=== PATIENT | male | born 1950 | race Caucasian/White ===

== ENCOUNTER → 2018-02-12 10:06 | Outpatient (CLI) | payer MEDICARE, SELFPAY ==
[2018-02-12 11:31] LABS: Basophils % 0.3 % (0.1-2.0); Eosinophils # 0.1 K/mm3 (0.0-0.4); Eosinophils % 1.1 % (0.1-12.0); Hematocrit 48.9 % (42.0-52.0); Hemoglobin 15.4 g/dL (14.1-18.0); Lymphocytes # 1.6 K/mm3 (0.7-4.5); Lymphocytes % 23.6 K/mm3 (10-50); Mean Corpuscular HGB Conc 31.4 g/dL (31.8-35.4); Mean Corpuscular Hemoglobin 30.9 pg (27.0-31.2); Mean Corpuscular Volume 98.4 fl (80-94); Mean Platelet Volume 9.4 fl (7.4-10.4); Monocytes # 0.3 K/mm3 (0.1-1.0); Monocytes % 4.4 % (1.7-9.3); Neutrophils # 4.9 K/mm3 (1.8-7.8); Neutrophils % 70.6 % (37.0-80.0); Platelet Count 158 K/mm3 (142-424); Red Blood Count 4.97 M/mm3 (4.60-6.20); Red Cell Distribution Width 13.5 % (11.5-17.5); White Blood Count 6.9 K/mm3 (4.8-10.8)
[2018-02-12 12:40] LABS: Hemoglobin A1C 6.2 % (0.0-7.0)
[2018-02-12 12:48] LABS: Alanine Aminotransferase 50 U/L (12-78); Albumin Level 4.2 gm/dL (3.4-5.0); Albumin/Globulin Ratio 1.3 (1.1-1.8); Alkaline Phosphatase 54 U/L (46-116); Anion Gap 14.7 mEq/L (5-15); Aspartate Amino Transferase 43 U/L (15-37); Bilirubin,Total 0.7 mg/dL (0.2-1.0); Blood Urea Nitrogen 15 mg/dL (7-18); Calcium 8.5 mg/dL (8.5-10.1); Carbon Dioxide 29 mmol/L (21.0-32.0); Chloride 101 mmol/L (98-107); Chol/HDL Ratio 3.3 (1-3.5); Cholesterol 144 mg/dL (140-200); Creatinine,Serum 0.82 mg/dL (0.70-1.30); Estimated Glomerular Filt Rate 93 ml/min (>60); GFR (African American) 113 ML/MIN (>60); Globulin 3.2 gm/dl (1.3-3.2); Glucose 112 mg/dL (74-106); HDL Cholesterol 43 mg/dL (27-67); LDL Cholesterol 64 mg/dL (0-130); Potassium 4.7 mmoL/L (3.5-5.1); Prostate Specific Ag Screen 1.3 ng/mL (0.0-4.0); Sodium 140 mmol/L (136-145); Thyroid Stimulating Hormone 3.02 uIU/ml (0.358-3.740); Total Protein,Serum 7.4 gm/dL (6.4-8.2); Triglycerides 187 mg/dL (30-200); VLDL Cholesterol 37 mg/dL (0-40)
[2018-02-13 15:40] LABS: Vitamin B12 666 pg/mL (232-1245)
== END ==
PROVIDERS: Visit Provider Nurse Practitioner Family
DX: Z12.5 Encounter for screening for malignant neoplasm of prostate (principal); R35.1 Nocturia; E78.5 Hyperlipidemia, unspecified; I10 Essential (primary) hypertension; E11.9 Type 2 diabetes mellitus without complications; R53.81 Other malaise
CPT/HCPCS: 36415; 80053; 80061; 82607; 83036; 84443; 85025; G0103

== ENCOUNTER → 2019-02-11 12:11 | Outpatient (CLI) | payer MEDICARE, SELFPAY ==
[2019-02-11 12:51] LABS: Basophils % 0.3 % (0.1-2.0); Eosinophils # 0.1 K/mm3 (0.0-0.4); Eosinophils % 1.3 % (0.1-12.0); Hematocrit 47.5 % (42.0-52.0); Hemoglobin 15.4 g/dL (14.1-18.0); Lymphocytes # 1.7 K/mm3 (0.7-4.5); Lymphocytes % 26.3 % (10-50); Mean Corpuscular HGB Conc 32.3 g/dL (31.8-35.4); Mean Corpuscular Hemoglobin 32.5 pg (27.0-31.2); Mean Corpuscular Volume 100.7 fl (80-94); Mean Platelet Volume 9.3 fl (7.4-10.4); Monocytes # 0.4 K/mm3 (0.1-1.0); Monocytes % 5.5 % (1.7-9.3); Neutrophils # 4.2 K/mm3 (1.8-7.8); Neutrophils % 66.5 % (37.0-80.0); Platelet Count 154 K/mm3 (142-424); Red Blood Count 4.72 M/mm3 (4.60-6.20); Red Cell Distribution Width 13.7 % (11.5-17.5); White Blood Count 6.4 K/mm3 (4.8-10.8)
[2019-02-11 13:46] LABS: Hemoglobin A1C 7.2 % (0.0-7.0)
[2019-02-11 15:08] LABS: Alanine Aminotransferase 47 U/L (12-78); Albumin Level 3.9 gm/dL (3.4-5.0); Albumin/Globulin Ratio 1.2 (1.1-1.8); Alkaline Phosphatase 56 U/L (46-116); Anion Gap 14.2 mEq/L (5-15); Aspartate Amino Transferase 46 U/L (15-37); Bilirubin,Total 0.8 mg/dL (0.2-1.0); Blood Urea Nitrogen 23 mg/dL (7-18); Calcium 8.9 mg/dL (8.5-10.1); Carbon Dioxide 32 mmol/L (21.0-32.0); Chloride 100 mmol/L (98-107); Chol/HDL Ratio 3.2 (1-3.5); Cholesterol 143 mg/dL (140-200); Creatinine,Serum 0.97 mg/dL (0.70-1.30); Estimated Glomerular Filt Rate 77 ml/min (>60); GFR (African American) 93 ML/MIN (>60); Globulin 3.3 gm/dl (1.3-3.2); Glucose 110 mg/dL (74-106); HDL Cholesterol 45 mg/dL (27-67); LDL Cholesterol 69 mg/dL (0-130); Potassium 5.2 mmoL/L (3.5-5.1); Sodium 141 mmol/L (136-145); Total Protein,Serum 7.2 gm/dL (6.4-8.2); Triglycerides 144 mg/dL (30-200); VLDL Cholesterol 29 mg/dL (0-40)
[2019-02-13 18:35] LABS: Vitamin B12 571 pg/mL (232-1245)
== END ==
PROVIDERS: Visit Provider Nurse Practitioner Family
DX: E78.5 Hyperlipidemia, unspecified (principal); I10 Essential (primary) hypertension; E53.8 Deficiency of other specified B group vitamins; E11.9 Type 2 diabetes mellitus without complications; Z79.84 Long term (current) use of oral hypoglycemic drugs
CPT/HCPCS: 36415; 80053; 80061; 82607; 83036; 85025

== ENCOUNTER → 2020-06-22 10:28 | Outpatient (CLI) | payer MEDICARE, SELFPAY ==
[2020-06-22 11:13] LABS: Basophils % 0.3 % (0.1-2.0); Eosinophils # 0.1 K/mm3 (0.0-0.4); Eosinophils % 0.9 % (0.1-12.0); Hematocrit 48.3 % (42.0-52.0); Hemoglobin 15.3 g/dL (14.1-18.0); Lymphocytes # 1.8 K/mm3 (0.7-4.5); Lymphocytes % 22.9 % (10-50); Mean Corpuscular HGB Conc 31.7 g/dL (31.8-35.4); Mean Corpuscular Volume 100.9 fl (80-94); Mean Platelet Volume 10.2 fl (7.4-10.4); Monocytes # 0.4 K/mm3 (0.1-1.0); Monocytes % 4.7 % (1.7-9.3); Neutrophils # 5.7 K/mm3 (1.8-7.8); Neutrophils % 71.1 % (37.0-80.0); Platelet Count 163 K/mm3 (142-424); Red Blood Count 4.78 M/mm3 (4.60-6.20); Red Cell Distribution Width 13.2 % (11.5-17.5)
[2020-06-22 12:07] LABS: Alanine Aminotransferase 25 U/L (12-78); Albumin Level 4.7 g/dl (3.5-5.0); Albumin/Globulin Ratio 1.7 (1.1-1.8); Alkaline Phosphatase 58 U/L (38-126); Anion Gap 12.8 mEq/L (5-15); Aspartate Amino Transferase 35 U/L (17-59); Bilirubin,Total 0.9 mg/dl (0.2-1.3); Blood Urea Nitrogen 19 mg/dl (9-20); Calcium 9.7 mg/dl (8.4-10.2); Carbon Dioxide 35 mmol/L (22.0-30.0); Chloride 97 mmol/L (98-107); Chol/HDL Ratio 3.6 (1-3.5); Cholesterol 176 mg/dl (140-200); Estimated Glomerular Filt Rate 83 ml/min (>60); GFR (African American) 101 ML/MIN (>60); Globulin 2.7 g/dL (1.3-3.2); Glucose 105 mg/dl (74-100); HDL Cholesterol 49 mg/dl (40-60); Potassium 4.8 mmoL/L (3.5-5.1); Sodium 140 mmol/L (136-145); Total Protein,Serum 7.4 g/dl (6.3-8.2); Triglycerides 253 mg/dl (30-150); VLDL Cholesterol 51 mg/dL (0-40)
[2020-06-22 12:20] LABS: Direct LDL Cholesterol 93.32 mg/dL (100-129)
[2020-06-22 12:36] LABS: Prostate Specific Ag Screen 2.4 ng/ml (0.0-4.0)
[2020-06-22 12:55] LABS: Vitamin B12 528 pg/mL (239-931)
[2020-06-22 13:52] LABS: Hemoglobin A1C 6.1 % (4.0-6.0)
[2020-06-22 14:29] LABS: Creatinine,Urine Random 207 mg/dL (Not Estab.)
[2020-06-22 14:30] LABS: Microalbumin/Creatinine Ratio 39.9
== END ==
PROVIDERS: Visit Provider Nurse Practitioner Family
DX: I10 Essential (primary) hypertension (principal); E78.5 Hyperlipidemia, unspecified; E11.9 Type 2 diabetes mellitus without complications; E53.8 Deficiency of other specified B group vitamins; R35.1 Nocturia; Z12.5 Encounter for screening for malignant neoplasm of prostate; Z79.84 Long term (current) use of oral hypoglycemic drugs
CPT/HCPCS: 36415; 80053; 80061; 82043; 82570; 82607; 83036; 85025; G0103

== ENCOUNTER → 2020-07-19 14:35 | Outpatient (CLI) | payer MEDICARE, SELFPAY ==
[2020-07-19 17:22] LABS: Coronavirus 19 IgG Antibody Negative (Negative); Coronavirus 19 IgM Antibody Negative (Negative)
== END ==
PROVIDERS: Visit Provider Internal Medicine Gastroenterology
DX: Z12.11 Encounter for screening for malignant neoplasm of colon (principal)
CPT/HCPCS: 36415; 86328

== ENCOUNTER 2020-07-21 09:54 | Day surgery (SDC) | payer MEDICARE, SELFPAY ==
[2020-07-17 10:29] VITALS: BMI 42.9
[2020-07-21 10:32] VITALS: BP 173/99; PULSE 85; RESP 18; TEMP 36.5; O2SAT 94
[2020-07-21 10:50] LABS: POC Glucose,Bedside 118 (70-110)
--- NOTE | 2020-07-21 11:23 | P.PN_ITS ---
[facility] Anesthesia Checklist - Patient Identification Patient Identification: Arm Band - Structural Data Admitted From: Home Planned Operative Procedure/s: colonoscopy Consent for Planned Operative Procedure(s) Verified: Yes Verified Documents: Surgical Consent, History and Physical - NPO Status Verified Time NPO: 00:00 - Additional verifications Anesthesia Reactions: No - Airway Assessment C-Spine Mobility Assessed: Yes (mp2) TMJ Mobility Assessed: Yes Dentition: Dentures-good fit - Neurological Assessment Level of Consciousness: Awake, Alert - Anesthesia Plan Anesthesia Risk discussed: Yes Anesthesia Plan: Verified ASA Class: III Anesthesia Type: MAC [facility] History I have reviewed the patient's past medical history: Yes Medical History: Reports:: Atherosclerotic Heart Disease, Coronary Artery Disease, Diabetes Mellitus Type 2, Hyperlipidemia, Hypertension, Myocardial Infarction Denies:: Cancer, Diabetes Mellitus Type 1, Internal Pacemaker, Lung Disease, MRSA, Seizures *Have you ever received a pneumonia vaccine?: Yes *Have you received a flu vaccine this season?: Yes Other Medical History: Reports: Other (AIDAN, obesity) Anesthesia experience/problems:: nac Other Surgeries: Yes: Coronary Stent. No: Pacemaker Amputation: No Fractures: No - *Social History Last grade of school completed: High school graduate Smoking Status: Never smoker Alcohol Intake: never Substance Use Type: denies use *Occupational Status:: retired Housing: house Household Members: spouse *Travel in the last 8 weeks: None Family Hx:: Coronary Artery Disease, Stroke
[2020-07-21 11:34] VITALS: O2SAT 97
[2020-07-21 11:50] VITALS: BP 125/60; PULSE 77; RESP 18; TEMP 36.6; O2SAT 92
--- NOTE | 2020-07-21 11:50 | HMH.PROC ---
[facility] Procedure Note Procedure Note:: Colonoscopy Procedure Report: Colonoscopy with cold snare polypectomy Endoscopist: Sudhir Hunter II, MD Referring physician: GIDEON Neal Date of Procedure: July 21, 2020 Equipment: Olympus 180 variable stiffness pediatric colonoscope Sedation: MAC sedation Indication: Mr. Holcomb is a 69-year-old gentleman who is here for follow-up surveillance colonoscopy secondary to a personal history of adenomatous colon polyps. He had a colonoscopy 7 years ago at which time some polyps were removed. His last colonoscopy with al in March 2018 revealed 14 colon polyps (tubular adenomas x14) which were removed. He reports no abdominal pain, weight loss, change in his bowel habits or rectal bleeding. He reports no family history of colon cancer. Procedure: Prior to the procedure, a history and physical exam was performed, and patient's medications and allergies were reviewed. The risks, benefits and alternatives of the sedation and procedure were discussed with the patient. All questions were answered and informed consent was obtained. The patient was brought to the procedure room. Patient identification and proposed procedure were verified by the physician and the nurse. The patient was placed in a left lateral decubitus position and the scope was passed under direct vision. Throughout the procedure, the patient's blood pressure, pulse, and oxygen saturations were monitored continuously. The colonoscopy was accomplished without difficulty. The patient tolerated the procedure well. Findings: On digital rectal examination there was normal rectal tone. There were no external hemorrhoids. The colonoscope was introduced through the anal canal to the rectum and advanced to the cecum. The ileocecal valve and appendiceal orifice were identified. The scope was advanced a short distance into the ileum which appeared grossly normal. The scope was then withdrawn into the colon. There were 5 colon polyps (ascending x3 (3, 4 and 4 mm), transverse x1 (5 mm) and ascending x1 (3 mm)) which were all removed via cold snare polypectomy. The remaining cecum, ascending and transverse colon and mucosa were grossly normal. There were scattered diverticuli throughout the descending and sigmoid colon (LEFT colon). The rectum itself was normal. Upon retroflexion within the rectum there were grade 1-2 internal hemorrhoids. The preparation was excellent throughout with Amelia Preparation Score of 9. The cecal time was 12 minutes. Impression: 1. Diminutive colonic polyps x5 2. Left-sided diverticulosis 3. Grade 1-2 internal hemorrhoids Plan: I will follow up the polyp pathology and recommend repeat colonoscopy again in 3-5 years based upon the polyp histology. I would encourage bulk fiber supplementation on a long-term daily maintenance basis.
[2020-07-21 12:00] VITALS: BP 144/78; PULSE 87; RESP 16; O2SAT 94
[2020-07-21 12:20] VITALS: BP 138/76; PULSE 76; RESP 16; O2SAT 97
== END 2020-07-21 12:20 | disposition home or self-care (01) ==
LOC: OUTP 09:57
PROVIDERS: PCP Nurse Practitioner Family; Visit Provider Internal Medicine Gastroenterology
PROC: 0DJD8ZZ Inspection of Lower Intestinal Tract, Via Natural or Artificial Opening Endoscopic (ICD-10-PCS; CPT 45378; principal; 2020-07-21 11:00)
DX: Z12.11 Encounter for screening for malignant neoplasm of colon (principal); Z86.010 Personal history of colon polyps; K63.5 Polyp of colon; K57.30 Diverticulosis of large intestine without perforation or abscess without bleeding; K64.0 First degree hemorrhoids; I25.10 Atherosclerotic heart disease of native coronary artery without angina pectoris; E11.9 Type 2 diabetes mellitus without complications; E78.5 Hyperlipidemia, unspecified; I10 Essential (primary) hypertension; I25.2 Old myocardial infarction; E66.9 Obesity, unspecified; Z68.41 Body mass index [BMI] 40.0-44.9, adult
CPT/HCPCS: 45385; 82962; 88305

== ENCOUNTER → 2021-01-18 10:02 | Outpatient (CLI) | payer MEDICARE, SELFPAY ==
[2021-01-18 10:37] LABS: Basophils % 0.3 % (0.1-2.0); Eosinophils # 0.1 K/mm3 (0.0-0.4); Eosinophils % 1.3 % (0.1-12.0); Hematocrit 44.2 % (42.0-52.0); Lymphocytes # 1.7 K/mm3 (0.7-4.5); Mean Corpuscular Hemoglobin 32.5 pg (27.0-31.2); Mean Corpuscular Volume 95.7 fl (80-94); Mean Platelet Volume 9.7 fl (7.4-10.4); Monocytes # 0.3 K/mm3 (0.1-1.0); Monocytes % 4.9 % (1.7-9.3); Neutrophils # 4.8 K/mm3 (1.8-7.8); Neutrophils % 69.5 % (37.0-80.0); Platelet Count 152 K/mm3 (142-424); Red Blood Count 4.62 M/mm3 (4.60-6.20); Red Cell Distribution Width 13.4 % (11.5-17.5); White Blood Count 6.9 K/mm3 (4.8-10.8)
[2021-01-18 11:14] LABS: Alanine Aminotransferase 28 U/L (12-78); Albumin Level 4.6 g/dl (3.5-5.0); Albumin/Globulin Ratio 1.9 (1.1-1.8); Alkaline Phosphatase 50 U/L (38-126); Anion Gap 9.7 mEq/L (5-15); Aspartate Amino Transferase 33 U/L (17-59); Bilirubin,Total 0.9 mg/dl (0.2-1.3); Blood Urea Nitrogen 21 mg/dl (9-20); Carbon Dioxide 28 mmol/L (22.0-30.0); Chloride 103 mmol/L (98-107); Chol/HDL Ratio 3.5 (1-3.5); Cholesterol 159 mg/dl (140-200); Estimated Glomerular Filt Rate 95 ml/min (>60); GFR (African American) 115 ML/MIN (>60); Globulin 2.4 g/dL (1.3-3.2); Glucose 104 mg/dl (74-100); HDL Cholesterol 46 mg/dl (40-60); Potassium 4.7 mmoL/L (3.5-5.1); Sodium 136 mmol/L (136-145); Triglycerides 217 mg/dl (30-150); VLDL Cholesterol 43 mg/dL (0-40)
[2021-01-18 11:25] LABS: Direct LDL Cholesterol 74.39 mg/dL (100-129)
[2021-01-18 13:07] LABS: Hemoglobin A1C 5.8 % (4.0-6.0)
== END ==
PROVIDERS: Visit Provider Nurse Practitioner Family
DX: E11.9 Type 2 diabetes mellitus without complications (principal); I25.9 Chronic ischemic heart disease, unspecified; E53.8 Deficiency of other specified B group vitamins; Z79.84 Long term (current) use of oral hypoglycemic drugs
CPT/HCPCS: 36415; 80053; 80061; 83036; 85025

== ENCOUNTER → 2021-06-25 09:56 | Outpatient (CLI) | payer MEDICARE, SELFPAY ==
[2021-06-25 10:39] LABS: Basophils # 0.1 K/mm3 (0-0.2); Basophils % 0.7 % (0.1-2.0); Eosinophils # 0.1 K/mm3 (0.0-0.4); Eosinophils % 1.1 % (0.1-12.0); Hematocrit 45.5 % (42.0-52.0); Hemoglobin 14.7 g/dL (14.1-18.0); Lymphocytes # 1.8 K/mm3 (0.7-4.5); Lymphocytes % 26.2 % (10-50); Mean Corpuscular HGB Conc 32.3 g/dL (31.8-35.4); Mean Corpuscular Hemoglobin 33.1 pg (27.0-31.2); Mean Corpuscular Volume 102.5 fl (80-94); Mean Platelet Volume 10.6 fl (7.4-10.4); Monocytes # 0.4 K/mm3 (0.1-1.0); Monocytes % 5.2 % (1.7-9.3); Neutrophils # 4.6 K/mm3 (1.8-7.8); Neutrophils % 66.8 % (37.0-80.0); Platelet Count 155 K/mm3 (142-424); Red Blood Count 4.44 M/mm3 (4.60-6.20); Red Cell Distribution Width 13.5 % (11.5-17.5); White Blood Count 6.9 K/mm3 (4.8-10.8)
[2021-06-25 11:16] LABS: Hemoglobin A1C 5.9 % (4.0-6.0)
[2021-06-25 11:44] LABS: Alanine Aminotransferase 25 U/L (12-78); Albumin Level 4.6 g/dl (3.5-5.0); Albumin/Globulin Ratio 1.8 (1.1-1.8); Alkaline Phosphatase 45 U/L (38-126); Anion Gap 12.8 mEq/L (5-15); Aspartate Amino Transferase 32 U/L (17-59); Bilirubin,Total 0.8 mg/dl (0.2-1.3); Blood Urea Nitrogen 19 mg/dl (9-20); Calcium 9.7 mg/dl (8.4-10.2); Carbon Dioxide 32 mmol/L (22.0-30.0); Chloride 101 mmol/L (98-107); Cholesterol 136 mg/dl (140-200); Estimated Glomerular Filt Rate 95 ml/min (>60); GFR (African American) 115 ML/MIN (>60); Globulin 2.5 g/dL (1.3-3.2); Glucose 100 mg/dl (74-100); HDL Cholesterol 45 mg/dl (40-60); Potassium 4.8 mmoL/L (3.5-5.1); Sodium 141 mmol/L (136-145); Total Protein,Serum 7.1 g/dl (6.3-8.2); Triglycerides 152 mg/dl (30-150); VLDL Cholesterol 30 mg/dL (0-40)
[2021-06-25 11:55] LABS: Direct LDL Cholesterol 67.07 mg/dL (100-129)
[2021-06-25 12:15] LABS: Prostate Specific Ag Screen 1.3 ng/ml (0.0-4.0)
[2021-06-25 12:33] LABS: Vitamin B12 409 pg/mL (239-931)
== END ==
PROVIDERS: Visit Provider Nurse Practitioner Family
DX: I25.9 Chronic ischemic heart disease, unspecified (principal); E78.5 Hyperlipidemia, unspecified; E53.8 Deficiency of other specified B group vitamins; E11.9 Type 2 diabetes mellitus without complications; R35.1 Nocturia; Z79.84 Long term (current) use of oral hypoglycemic drugs; Z12.5 Encounter for screening for malignant neoplasm of prostate
CPT/HCPCS: 36415; 80053; 80061; 82607; 83036; 85025; G0103

== ENCOUNTER → 2023-08-12 16:41 | Outpatient (CLI) | payer MEDICARE, SELFPAY ==
--- NOTE | 2023-08-12 16:46 | XR_ITS ---
PROCEDURE INFORMATION: Exam: XR Chest Exam date and time: 08/12/2023 4:50 PM Age: 72 years old Clinical indication: Shortness of breath; Prior surgery; Surgery date: <1 month; Surgery type: Recent open heart surgery with external pacemaker. TECHNIQUE: Imaging protocol: Radiologic exam of the chest. Views: 2 views. COMPARISON: No relevant prior studies available. FINDINGS: Tubes, catheters and devices: Electronic device projects over the left chest. Lungs: There is parenchymal consolidation versus compressive atelectasis in the left lower lobe. Pleural spaces: There is a large left pleural effusion. Heart/Mediastinum: No evidence of mediastinal widening or cardiac silhouette enlargement; the mediastinum and heart appear within normal limits for contour and size. Bones/joints: The patient is status post median sternotomy. IMPRESSION: 1. There is a large left pleural effusion. 2. There is parenchymal consolidation versus compressive atelectasis in the left lower lobe.
[2023-08-12 17:15] LABS: Basophils % 0.2 % (0.1-2.0); Eosinophils # 0.2 K/mm3 (0.0-0.4); Eosinophils % 1.8 % (0.1-12.0); Hematocrit 34.8 % (42.0-52.0); Hemoglobin 11.2 g/dL (14.1-18.0); Lymphocytes % 11.2 % (10-50); Mean Corpuscular HGB Conc 32.1 g/dL (31.8-35.4); Mean Corpuscular Hemoglobin 31.6 pg (27.0-31.2); Mean Corpuscular Volume 98.3 fl (80-94); Mean Platelet Volume 8.4 fl (7.4-10.4); Monocytes # 0.5 K/mm3 (0.1-1.0); Monocytes % 5.1 % (1.7-9.3); Neutrophils # 7.4 K/mm3 (1.8-7.8); Neutrophils % 81.7 % (37.0-80.0); Platelet Count 374 K/mm3 (142-424); Red Blood Count 3.54 M/mm3 (4.60-6.20); Red Cell Distribution Width 15.3 % (11.5-17.5)
[2023-08-12 17:40] LABS: Chloride 102 mmol/L (98-107); Sodium 139 mmol/L (136-145)
[2023-08-12 17:41] LABS: Potassium 4.9 mmoL/L (3.5-5.1)
[2023-08-12 17:43] LABS: Alanine Aminotransferase 41 U/L (12-78); Alkaline Phosphatase 121 U/L (38-126); Anion Gap 12.9 mEq/L (5-15); Aspartate Amino Transferase 60 U/L (17-59); Bilirubin,Total 0.7 mg/dl (0.2-1.3); Blood Urea Nitrogen 14 mg/dl (9-20); Carbon Dioxide 29 mmol/L (22.0-30.0); Estimated Glomerular Filt Rate 110 ml/min (>60); GFR (African American) 133 ML/MIN (>60)
[2023-08-12 17:44] LABS: Albumin Level 3.9 g/dl (3.5-5.0); Albumin/Globulin Ratio 1.5 (1.1-1.8); Calcium 8.7 mg/dl (8.4-10.2); Globulin 2.6 g/dL (1.3-3.2); Glucose 102 mg/dl (74-100); Magnesium 1.9 mg/dl (1.6-2.3); Total Protein,Serum 6.5 g/dl (6.3-8.2)
[2023-08-12 17:53] LABS: NT Pro Brain Natriuretic Pep. 1370 pg/mL (0-125)
== END ==
PROVIDERS: PCP Nurse Practitioner Family; Visit Provider Nurse Practitioner Family
DX: R60.0 Localized edema (principal); R06.02 Shortness of breath
CPT/HCPCS: 36415; 71046; 80053; 83735; 83880; 85025

== ENCOUNTER 2024-02-20 08:27 | Outpatient (CLI) | payer MEDICARE, SELFPAY ==
--- NOTE | 2024-02-20 08:34 | CT_ITS ---
FINAL REPORT TECHNIQUE: Thin section axial CT images were obtained through the neck after intravenous contrast administration. Coronal and sagittal reformats were also obtained. This study was performed with techniques to keep radiation doses as low as reasonably achievable (ALARA). Individualized dose reduction techniques using automated exposure control or adjustment of mA and/or kV according to the patient''s size were employed. CLINICAL HISTORY: PAIN IN SUBMANDIBULAR GLAND, hoarsness FINDINGS: The nasopharynx, oropharynx, hypopharynx and larynx are unremarkable. There is mild enlargement of the right submandibular gland with adjacent stranding consistent with mild sialadenitis. There is mild lobulation of the true vocal cord on the left side, of uncertain significance. Multiple bilateral cervical lymph nodes are noted. Moderate carotid artery calcifications are noted. The thyroid gland is unremarkable. The visualized sinuses are clear. There is no acute osseous abnormality. IMPRESSION: Mild enlargement of the right submandibular gland with adjacent stranding consistent with mild sialadenitis. Mild lobulation of the true vocal cord on the left side is noted as well, a finding of uncertain significance. Moderate carotid artery calcifications are noted. Reviewed, Interpreted and Dictated by Srikanth Cueto III, MD Transcribed by Kalee Matos Authenticated and [facility]
[2024-02-20 09:42] LABS: Blood Urea Nitrogen 33 mg/dl (9-20); Estimated Glomerular Filt Rate 73 ml/min (>60); GFR (African American) 88 ML/MIN (>60)
[2024-02-20] MEDS: IOPAMIDOL-370 (76%);100ML BOTTLE 75 ML IV (10:07)
[2024-02-20] MEDS: SODIUM CHLORIDE 0.9% 10ML SYR (RAD ONLY) 10 ML IV (10:08)
== END 2024-02-20 23:59 | disposition home or self-care (01) ==
LOC: RAD 08:28
PROVIDERS: PCP Nurse Practitioner Family; Visit Provider Internal Medicine Adolescent Medicine
DX: K11.8 Other diseases of salivary glands (principal); R49.0 Dysphonia
CPT/HCPCS: 36415; 70491; 82565; 84520; Q9967

== ENCOUNTER 2024-07-26 15:12 | Outpatient (CLI) | payer MEDICARE, SELFPAY ==
--- NOTE | 2024-07-26 15:21 | XR_ITS ---
FINAL REPORT CLINICAL HISTORY: .Acute cough, congestion, shortness of air FINDINGS: Two views of the chest were obtained. The heart size and pulmonary vascularity are within normal limits. The patient is status post median sternotomy. There are right basilar opacities which may represent atelectasis or pneumonia. There is no pneumothorax. The bony thorax is intact. IMPRESSION: Right basilar atelectasis or pneumonia. Reviewed, Interpreted and Dictated by Srikanth Cueto III, MD Transcribed by Anita Palomo Authenticated and . [facility]
== END 2024-07-26 23:59 | disposition home or self-care (01) ==
LOC: RAD 15:12
PROVIDERS: PCP Nurse Practitioner Family; Visit Provider Nurse Practitioner Family
DX: R05.1 Acute cough (principal)
CPT/HCPCS: 71046

== ENCOUNTER 2024-09-09 12:51 | Outpatient (CLI) | payer MEDICARE, SELFPAY ==
--- NOTE | 2024-09-09 12:57 | XR_ITS ---
FINAL REPORT TECHNIQUE: Chest PA & Lateral CLINICAL HISTORY: RECURRENT PNEUMONIA COMPARISON: 07/26/2024 FINDINGS: 2 views of the chest were performed. There is [id number] cardiomegaly. Sternotomy wires are present. There is an unfolded aorta. There is no acute cardiopulmonary process. There are no pleural effusions. There is no pneumothorax. The bony thorax appears intact. IMPRESSION: No acute cardiopulmonary process. Reviewed, Interpreted and Dictated by Jian Loco MD Transcribed by Arianna Mckenzie Authenticated and [facility]
== END 2024-09-09 23:59 | disposition home or self-care (01) ==
LOC: RAD 12:52
PROVIDERS: PCP Nurse Practitioner Family; Visit Provider Nurse Practitioner Family
DX: Z87.01 Personal history of pneumonia (recurrent) (principal)
CPT/HCPCS: 71046

== ENCOUNTER 2025-01-03 14:32 | Outpatient (CLI) | payer MEDICARE, SELFPAY ==
--- NOTE | 2025-01-03 14:35 | XR_ITS ---
FINAL REPORT TECHNIQUE: Chest PA & Lateral CLINICAL HISTORY: CHEST RALES COMPARISON: None FINDINGS: 2 views of the chest were performed. Mild cardiomegaly is present, stable. The mediastinum is within normal limits. There is no acute cardiopulmonary process. There are no pleural effusions. Scarring versus atelectasis is present in the right lung base. There is no pneumothorax. The bony thorax appears intact. IMPRESSION: No acute cardiopulmonary process. Reviewed, Interpreted and Dictated by Jain Loco MD Transcribed by Kalee Matos Authenticated and [facility][1]
--- OUTSIDE RECORDS SUMMARY | 2025-01-03 14:35 | XMS_ITS | Data Portability ---
Author Organization ID - [facility] Address [address] [place] [address] Care Team Providers Care Financial Services Sales Representative Name Role Phone CHASTITY ROSAS Primary Care Provider [phone] Assessment Encounter Date Assessment Date Assessment LastModified by Organization Details LastModified Time 10/08/2023 10/08/2023 much improved. Trivial edema. He had atrial fibrillation post bypass. He has not had any other issues. Will cut back on the amiodarone 200 mg daily. I am going to place him on a monitor for 10-14 days. If he does not have atrial fibrillation we can come off of the amiodarone at that time. Will also get an echocardiogram to check the function of the heart to make sure that the function is improved and that he does not need a defibrillator another device. Plavix will be continued. Continue metoprolol. Continue Lasix at current dose. Continue Crestor. Meds and chart reviewed in full today. Overall he has significantly improved and continues to improve. Encourage exercise and weight loss Continue aspirin and Plavix Monitor blood pressure and heart rate Recommend LDL less than 70 Continue Crestor Blood work as per primary care Risk factor modification Encourage exercise and weight loss Continue metoprolol Echocardiogram 10-14 day Zio monitor Decrease amiodarone 200 mg If patient is in normal sinus rhythm on the Zio, we will discontinue amiodarone at follow-up Follow-up in Cardiology Clinic in 3 weeks EKG at follow-up Cardiac catheterization was done 07/16/2023 which showed severe distal left main coronary artery stenosis with 100% occlusion in stent of the 1st diagonal branch of the left anterior descending as well as subtotal occlusion of the 2nd obtuse marginal branch and 100% occlusion of the dominant right coronary artery. Left ventricular function was preserved. Normal end-diastolic pressure Myoview stress test 07/01/2023 was high risk with ischemia of the apical and lateral velasco and mixed ischemia and scar of the inferior wall with borderline normal left ventricular systolic function Blood work 07/01/2023 with a normal CBC with normal electrolytes and a creatinine normal at 0.98. Liver function within normal limits with a total cholesterol of 148 and an LDL of 52. Echocardiogram 07/01/2023 with ejection fraction 60% and diastolic dysfunction with normal pressures in the heart marquise Not available 10/09/2023 15:54:11 11/06/2023 11/06/2023 Edema has completely resolved. Feels well. Blood pressure and heart rate are under excellent control. He is doing cardiac rehabilitation. EKG today shows normal sinus rhythm with old inferior lateral wall OR and nonspecific changes. His echocardiogram shows borderline function. 50%. This is an improvement from when he underwent bypass surgery. He feels well. His Zio monitor showed 2 runs of VT but the runs were slow VT and may be aberrancy. There was some irregularity. Heart rate 53-188 with an average of 77. He is on amiodarone 100 mg now. Blood pressure and heart rate are under excellent control. Finish cardiac rehabilitation. No changes in medical regimen. Meds and chart reviewed in full today Continue current medications Risk factor modification Recommend LDL less than 70 Full blood work at follow-up if not done by primary care Monitor blood pressure and heart rate Finished cardiac rehabilitation Continue amiodarone at 100 mg daily Encourage regular exercise, activity and weight loss Follow-up in Cardiology Clinic in 8-10 weeks EKG today shows normal sinus rhythm with old inferior lateral wall myocardial infarction and low voltage. No ST or T-wave changes Cardiac catheterization was done 07/16/2023 which showed severe distal left main coronary artery stenosis with 100% occlusion in stent of the 1st diagonal branch of the left anterior descending as well as subtotal occlusion of the 2nd obtuse marginal branch and 100% occlusion of the dominant right coronary artery. Left ventricular function was preserved. Normal end-diastolic pressure Myoview stress test 07/01/2023 was high risk with ischemia of the apical and lateral velasco and mixed ischemia and scar of the inferior wall with borderline normal left ventricular systolic function Blood work 07/01/2023 with a normal CBC with normal electrolytes and a creatinine normal at 0.98. Liver function within normal limits with a total cholesterol of 148 and an LDL of 52. Echocardiogram was done 10/24/2023 as a post coronary artery bypass grafting echo. Technically difficult study but the ejection fraction was 50% and borderline. Evidence for diastolic dysfunction. Normal pressures in the heart and no valvular abnormalities Zio monitor was done 09/2023 for 10 days. Heart rate 53-188 with an average of 77. Two slow runs of ventricular tachycardia versus aberrancy with a max of 19 beats. Patient was asymptomatic marquise Not available 11/06/2023 09:09:29 01/14/2024 01/14/2024 doing very well post coronary artery bypass grafting. Done with rehab. He has been very active. I will do full blood work. We have not done that since the bypass. I will see him back in 3 months. His ejection fraction post coronary artery bypass grafting normal. The valves looked good. Pressures in the heart looked normal. Blood pressure and heart rate look good. Follow-up in Cardiology Clinic in 3 months. Encourage continued weight loss, exercise and activity Continue current medications Risk factor modification Recommend LDL less than 70 Lipid, liver, renal in 1-2 weeks Continue Crestor 20 mg nightly Monitor blood pressure and heart rate Encourage regular exercise, activity and weight loss Continue amiodarone at 100 mg daily EKG at follow-up Consider stopping amiodarone at follow-up if patient remains in normal sinus rhythm Cardiac catheterization was done 07/16/2023 which showed severe distal left main coronary artery stenosis with 100% occlusion in stent of the 1st diagonal branch of the left anterior descending as well as subtotal occlusion of the 2nd obtuse marginal branch and 100% occlusion of the dominant right coronary artery. Left ventricular function was preserved. Normal end-diastolic pressure Myoview stress test 07/01/2023 was high risk with ischemia of the apical and lateral velasco and mixed ischemia and scar of the inferior wall with borderline normal left ventricular systolic function Blood work 07/01/2023 with a normal CBC with normal electrolytes and a creatinine normal at 0.98. Liver function within normal limits with a total cholesterol of 148 and an LDL of 52. Echocardiogram was done 10/24/2023 as a post coronary artery bypass grafting echo. Technically difficult study but the ejection fraction was 50% and borderline. Evidence for diastolic dysfunction. Normal pressures in the heart and no valvular abnormalities Zio monitor was done 09/2023 for 10 days. Heart rate 53-188 with an average of 77. Two slow runs of ventricular tachycardia versus aberrancy with a max of 19 beats. Patient was asymptomatic [email or web address] Not available 01/14/2024 16:47:14 04/15/2024 04/15/2024 Fatigue has improved. He is feeling much better. He has been very active. I did review his blood work that he had done. This was just done back at the end of December. His CBC is within normal limits. Creatinine stable at 1.33 which is slightly over normal. Electrolytes normal. Liver function normal. Triglycerides 164 with a total cholesterol of 158 and an LDL of 70. HDL 55. This was 01/14/2024. Overall he is doing well. The blood pressure and heart rate are under good control. His weight is stable and actually down a lb. I will see him back in 6 months. Encourage exercise and weight loss. Meds and chart reviewed in full today. PLAN: Continue current medications Risk factor modification Recommend LDL less than 70 . He is at goal for blood work on 01/14/2024 Continue aspirin and Plavix Continue amiodarone at current dose he is on 100 mg. He remains in normal sinus rhythm Continue Lasix and potassium Continue Crestor EKG at follow-up Monitor blood pressure and heart rate Encourage regular exercise, activity and weight loss Repeat echocardiogram at follow-up. That will be around the 1 year patti. His last echo showed borderline function. Reviewed with him today LAST CARDIAC CATHETERIZATION: which showed severe distal left main coronary artery stenosis with 100% occlusion in stent of the 1st diagonal branch of the left anterior descending as well as subtotal occlusion of the 2nd obtuse marginal branch and 100% occlusion of the dominant right coronary artery. Left ventricular function was preserved. Normal end-diastolic pressure MYOVIEW STRESS TEST:07/01/2023 was high risk with ischemia of the apical and lateral velasco and mixed ischemia and scar of the inferior wall with borderline normal left ventricular systolic function LDL: 01/14/2024 - 70 PREVIOUS BLOOD WORK: 07/01/2023 with a normal CBC with normal electrolytes and a creatinine normal at 0.98. Liver function within normal limits with a total cholesterol of 148 and an LDL of 52. ECHOCARDIOGRAM: 10/24/2023 as a post coronary artery bypass grafting echo. Technically difficult study but the ejection fraction was 50% and borderline. Evidence for diastolic dysfunction. Normal pressures in the heart and no valvular abnormalities ZIO HEART MONITOR: 09/2023 for 10 days. Heart rate 53-188 with an average of 77. Two slow runs of ventricular tachycardia versus aberrancy with a max of 19 beats. Patient was asymptomatic PREVIOUS CAROTID DUPLEX: 12/15/2017 ALEXA Cook LPN, I AM SCRIBING FOR, AND IN THE OFFICE/PRESENCE OF, ADIS TAVARES MD. ADIS Cook M.D. PERFORMED THE SERVICES DESCRIBED IN THIS DOCUMENTATION, SCRIBED BY ALEXA HENRY LPN IN MY PRESENCE, AND IT IS BOTH ACCURATE AND COMPLETE. [email or web address] Not available 04/15/2024 13:49:35 10/20/2024 10/20/2024 Doing very well. No issues. His post bypass echocardiogram looked great. He remains in normal sinus rhythm. His EKG today shows normal sinus rhythm with sinus arrhythmia. Incomplete right bundle-branch block. 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 No change from baseline. Blood pressure and heart rate look great. He is doing well. He is staying active. Blood work as per primary care. Meds and chart reviewed in full today. Follow-up in Cardiology Clinic in 6 months Patient Education was printed, I have reviewed the Past Medical, Family, and Social Histories along with ROS and all orders in today's record, and have noted any changes. Medications, charts and records reviewed in full today. PLAN: Continue current medications Risk factor modification Recommend LDL less than 70 . He is at goal for blood work on 01/14/2024 Continue aspirin and Plavix Blood work as per primary care. They has been following this on a regular basis Continue amiodarone at current dose he is on 100 mg. He remains in normal sinus rhythm Continue Lasix and potassium Continue Crestor Monitor blood pressure and heart rate Encourage regular exercise, activity and weight loss Repeat echocardiogram at follow-up. That will be around the 1 year patti. His last echo showed borderline function. Reviewed with him today EKG 10/18/24 reveals normal sinus rhythm with incomplete right bundle-branch block and old inferior wall myocardial infarction with nonspecific ST and T-wave changes. No change from baseline LAST CARDIAC CATHETERIZATION: which showed severe distal left main coronary artery stenosis with 100% occlusion in stent of the 1st diagonal branch of the left anterior descending as well as subtotal occlusion of the 2nd obtuse marginal branch and 100% occlusion of the dominant right coronary artery. Left ventricular function was preserved. Normal end-diastolic pressure MYOVIEW STRESS TEST:07/01/2023 was high risk with ischemia of the apical and lateral velasco and mixed ischemia and scar of the inferior wall with borderline normal left ventricular systolic function LDL: 01/14/2024 - 70 PREVIOUS BLOOD WORK: 07/01/2023 with a normal CBC with normal electrolytes and a creatinine normal at 0.98. Liver function within normal limits with a total cholesterol of 148 and an LDL of 52. ECHOCARDIOGRAM: 10/24/2023 as a post coronary artery bypass grafting echo. Technically difficult study but the ejection fraction was 50% and borderline. Evidence for diastolic dysfunction. Normal pressures in the heart and no valvular abnormalities ZIO HEART MONITOR: 09/2023 for 10 days. Heart rate 53-188 with an average of 77. Two slow runs of ventricular tachycardia versus aberrancy with a max of 19 beats. Patient was asymptomatic PREVIOUS CAROTID DUPLEX: 12/15/2017 IADIS M.D. PERFORMED THE SERVICES DESCRIBED IN THIS DOCUMENTATION, This note was dictated using [employer] software. If something is unclear, or does not make sense, please do not hesitate to contact our office at [phone] for clarification. [email or web address] Not available 10/20/2024 09:11:53 Plan of Treatment Reminders Order Date Submit Date Provider Last Modified By Organization Details Last Modified Time Details Appointments OV EST 30 2024 09:00A M Adis Tavares MD Not available Not available Not available Lab lipid panel, serum 2023 024 [facility] (Registration ), [place], [id number], 01/14/2024 10:42:49 CBC 2023 024 [facility] (Registration ), [place], [id number], 01/21/2024 08:13:19 CMP, serum or plasma 2023 024 [facility] (Registration ), [facility] [place], [address], 01/14/2024 10:42:47 Referral None recorded. Procedures None recorded. Surgeries None recorded. Imaging electroca rdiogram 2024 025 [facility], [address] [place] [address] [address], [place], [address], 10/20/2024 09:12:07 electroca rdiogram 2023 024 [facility], [address] [place] [address] [address], [place], [address], 11/06/2023 09:29:54 US, echocardi ogram, transthor acic, complete, w/ color flow 2023 024 [facility], [place] (Centralized Scheduling), [facility] [place], [address], 10/20/2023 08:25:58 Medication Orders None recorded. Patient TargetsNo targets recorded. Patient InstructionsNo instructions recorded. Reason for Referral None Reported. Results Created Date Observation Date Name Description Value Unit Range Abnormal Flag Note LastModifiedBy Organization Detail LastModifiedTime 09/24/1909/24/2023 GLUCO SE POINT OF CARE note See Note Order ing Provi bobby: Adis de león MD Not Available [place] [address], [place], [address], 09/24/2023 10:33:30 09/24/19 24 09/24/2023 GLUCO SE POINT OF CARE glucose point of care 89 mg/dL 70-99 normal Not Available [place] [address], [place], [address], 09/24/2023 10:33:30 09/24/19 24 09/24/2023 GLUCO SE POINT OF CARE performing lab see note [facility] [address] [place] [address] Not Available [address] , [place], [address], 09/24/2023 10:33:30 10/03/19 24 10/03/2023 GLUCO SE POINT OF CARE note See Note Order ing Provi bobby: Adis de león MD Not Available [address] , [place], [address], 10/03/2023 10:30:44 10/03/19 24 10/03/2023 GLUCO SE POINT OF CARE glucose point of care 92 mg/dL 70-99 normal Not Available [address] , [place], [address], 10/03/2023 10:30:44 10/03/19 24 10/03/2023 GLUCO SE POINT OF CARE performing lab see note [facility] [address] [place] [address] Not Available [address] , [place], [address], 10/03/2023 10:30:44 10/06/19 24 10/06/2023 GLUCO SE POINT OF CARE note See Note Order ing Provi bobby: Adis de león MD Not Available [address] , [place], [address], 10/06/2023 10:32:54 10/06/19 24 10/06/2023 GLUCO SE POINT OF CARE glucose point of care 87 mg/dL 70-99 normal Not Available [address] , [place], [address], 10/06/2023 10:32:54 10/06/19 24 10/06/2023 GLUCO SE POINT OF CARE performing lab see note [facility] [address] [place] [address] Not Available [address] , [place], [address], 10/06/2023 10:32:54 10/20/19 24 10/20/2023 GLUCO SE POINT OF CARE note See Note Order ing Provi bobby: Adis de león MD Not Available [address] , [place], [address], 10/20/2023 10:47:31 10/20/19 24 10/20/2023 GLUCO SE POINT OF CARE glucose point of care 95 mg/dL 70-99 normal Not Available [address] , [place], [address], 10/20/2023 10:47:31 10/20/19 24 10/20/2023 GLUCO SE POINT OF CARE performing lab see note [facility] [place] [id number] [facility] [place] [address] Not Available [address] , [place], [address], 10/20/2023 10:47:31 10/24/19 24 10/24/2023 GLUCO SE POINT OF CARE note See Note Order ing Provi bobby: Adis de león MD Not Available [address] , [place], [address], 10/24/2023 10:28:06 10/24/19 24 10/24/2023 GLUCO SE POINT OF CARE glucose point of care 81 mg/dL 70-99 normal Not Available [address] [place], [address], 10/24/2023 10:28:06 10/24/19 24 10/24/2023 GLUCO SE POINT OF CARE performing lab see note [facility] - [facility] [address] [place] [address] Not Available [address] , [place], [address], 10/24/2023 10:28:06 11/03/19 24 11/03/2023 GLUCO SE POINT OF CARE note See Note Order ing Provi bobby: Adis de león MD Not Available [address] , [place], [address], 11/03/2023 10:39:34 11/03/19 24 11/03/2023 GLUCO SE POINT OF CARE glucose point of care 111 mg/dL 70-99 high Not Available [address] , [place], [address], 11/03/2023 10:39:34 11/03/19 24 11/03/2023 GLUCO SE POINT OF CARE performing lab see note [facility] [address] [place] [address] Not Available [address] , [place], [address], 11/03/2023 10:39:34 11/05/19 24 11/05/2023 GLUCO SE POINT OF CARE note See Note Order ing Provi bobby: Adis de león MD Not Available [address] [place], [address], 11/05/2023 10:46:05 11/05/19 24 11/05/2023 GLUCO SE POINT OF CARE glucose point of care 127 mg/dL 70-99 high Not Available [address] [place], [address], 11/05/2023 10:46:05 11/05/19 24 11/05/2023 GLUCO SE POINT OF CARE performing lab see note [facility] - [address] [place] [address] Not Available [address], [place], [address], 11/05/2023 10:46:05 11/07/19 24 11/07/2023 GLUCO SE POINT OF CARE note See Note Order ing Provi bobby: Adis de león MD Not Available [address] , [place], [address], 11/07/2023 10:44:34 11/07/19 24 11/07/2023 GLUCO SE POINT OF CARE glucose point of care 122 mg/dL 70-99 high Not Available [address] , [place], [address], 11/07/2023 10:44:34 11/07/19 24 11/07/2023 GLUCO SE POINT OF CARE performing lab see note [facility] [address] [place] [address] Not Available [address] , [place], [address], 11/07/2023 10:44:34 11/10/19 24 11/10/2023 GLUCO SE POINT OF CARE note See Note Order ing Provi bobby: Adis de león MD Not Available [address] , [place], [address], 11/10/2023 10:35:53 11/10/19 24 11/10/2023 GLUCO SE POINT OF CARE glucose point of care 128 mg/dL 70-99 high Not Available [address] , [place], [address], 11/10/2023 10:35:53 11/10/19 24 11/10/2023 GLUCO SE POINT OF CARE performing lab see note [facility] - [facility] [address] [place] [address] Not Available [address] , [place], [address], 11/10/2023 10:35:53 11/12/19 24 11/12/2023 GLUCO SE POINT OF CARE note See Note Order ing Provi bobby: Adis de león MD Not Available [address] , [place], [address], 11/12/2023 10:43:06 11/12/19 24 11/12/2023 GLUCO SE POINT OF CARE glucose point of care 101 mg/dL 70-99 high Not Available [address] , [place], [address], 11/12/2023 10:43:06 11/12/19 24 11/12/2023 GLUCO SE POINT OF CARE performing lab see note [facility] [address] [place] [address] [facility] [address] Not Available [address] , [place], [address], 11/12/2023 10:43:06 12/01/19 24 12/01/2023 PROTH ROMBI N TIME note SEE NOTE Order ing Provi bobby: Adis de león MD Not Available [address] , [place], [address], 12/01/2023 12:05:29 12/01/19 24 12/01/2023 PROTH ROMBI N TIME prothrombin time patient 11.7 secon ds 9.4-11 .6 high Not Available [address] , [place], [address], 12/01/2023 12:05:29 12/01/19 24 12/01/2023 PROTH ROMBI N TIME internationa l normal ratio 1.1 0.9-1. 1 normal Recom gee d Thera peuti c Guide lines : INR Proph ylaxi s/marvin atmen t of Venou s Throm bosis , Pulmo nary Embol ism ..... ..... ..... ..... 2.0-3 .0 Preve ntion of Syste clovis Embol ism ..... ..... . 2.0-3 .0 Tissu e Heart Valve , Valvu lar Heart Disea se. 2.0-3 .0 Atria l Fibri llati on ..... ..... ..... ..... ... 2.0-3 .0 Bilea flet mecha nical valve in aorti c posit ion 2.0-3 .0 Acute myoca rdial infar ction (to preve nt Syste clovis Embol ism). ..... ..... ..... ..... 2.5-3 .5 Mecha nical prost hetic valve s (high risk) ... 2.5-3 .5 Certa in patie nts with throm bosis and the antip hosph olipi d syndr ome ..... ..... ... >2.0- 3.0 Not Available [address] , [place], [address], 12/01/2023 12:05:29 12/01/19 24 12/01/2023 MELLO De León TIME performing lab SEE [facility] [address] [facility] [address] Not Available [address] , [place], [address], 12/01/2023 12:05:29 12/05/19 24 12/05/2023 GLUCO SE POINT OF CARE note See Note Order ing Provi bobby: Adis de león MD Not Available [address] , [place], [address], 12/05/2023 10:47:00 12/05/19 24 12/05/2023 GLUCO SE POINT OF CARE glucose point of care 90 mg/dL 70-99 normal Not Available [address] , [place], [address], 12/05/2023 10:47:00 12/05/19 24 12/05/2023 GLUCO SE POINT OF CARE performing lab see note PO - [address] [place] [address] Not Available [address] , [place], [address], 12/05/2023 10:47:00 12/08/19 24 12/08/2023 GLUCO SE POINT OF CARE note See Note Order ing Provi bobby: Adis de león MD Not Available [address] , [place], [address], 12/08/2023 10:36:11 12/08/19 24 12/08/2023 GLUCO SE POINT OF CARE glucose point of care 119 mg/dL 70-99 high Not Available [address] , [place], [address], 12/08/2023 10:36:11 12/08/19 24 12/08/2023 GLUCO SE POINT OF CARE performing lab see note [facility] - [address] [place] [address] Not Available [address] [place], [address], 12/08/2023 10:36:11 12/10/19 24 12/10/2023 GLUCO SE POINT OF CARE note See Note Order ing Provi bobby: Adis de león MD Not Available [address] [place], [address], 12/10/2023 10:39:23 12/10/19 24 12/10/2023 GLUCO SE POINT OF CARE glucose point of care 98 mg/dL 70-99 normal Not Available [address] [place], [address], 12/10/2023 10:39:23 12/10/19 24 12/10/2023 GLUCO SE POINT OF CARE performing lab see note [facility] [place] [address] [place] [id number] Not Available [address] , [place], [address], 12/10/2023 10:39:23 12/12/19 24 12/12/2023 GLUCO SE POINT OF CARE note See Note Order ing Provi bobby: Adis de león MD Not Available [address] , [place], [address], 12/12/2023 10:56:55 12/12/19 24 12/12/2023 GLUCO SE POINT OF CARE glucose point of care 94 mg/dL 70-99 normal Not Available [address] , [place], [address], 12/12/2023 10:56:55 12/12/19 24 12/12/2023 GLUCO SE POINT OF CARE performing lab see note [facility] [place] [address] [place] [id number] Not Available [address] , [place], [address], 12/12/2023 10:56:55 12/19/19 24 12/19/2023 GLUCO SE POINT OF CARE note See Note Order ing Provi bobby: Adis de león MD Not Available [address] [place], [address], 12/19/2023 10:44:59 12/19/19 24 12/19/2023 GLUCO SE POINT OF CARE glucose point of care 89 mg/dL 70-99 normal Not Available [address] [place], [address], 12/19/2023 10:44:59 12/19/19 24 12/19/2023 GLUCO SE POINT OF CARE performing lab see note MWPOC - MWPOC [address] [place] [id number] Not Available [address] , [place], [address], 12/19/2023 10:44:59 12/22/19 24 12/22/2023 GLUCO SE POINT OF CARE note See Note Order ing Provi bobby: Adis de león MD Not Available [address] , [place], [address], 12/22/2023 10:47:10 12/22/19 24 12/22/2023 GLUCO SE POINT OF CARE glucose point of care 105 mg/dL 70-99 high Not Available [address] , [place], [address], 12/22/2023 10:47:10 12/22/19 24 12/22/2023 GLUCO SE POINT OF CARE performing lab see note MWPOC - MWPOC [address] [place]e [place] [address] Not Available [address] , [place], [address], 12/22/2023 10:47:10 12/24/19 24 12/24/2023 GLUCO SE POINT OF CARE note See Note Order ing Provi bobby: Adis de león MD Not Available [address] [place], [address], 12/24/2023 10:51:13 12/24/19 24 12/24/2023 GLUCO SE POINT OF CARE glucose point of care 108 mg/dL 70-99 high Not Available [address] , [place], [address], 12/24/2023 10:51:13 12/24/19 12/24/2023 GLUCO SE POINT OF CARE performing lab see note MWPOC - PO[address] [facility] [address] Not Available [address] , [place], [address], 12/24/2023 10:51:13 01/14/20 24 01/14/2024 CBC W/AUT O DIFFE RENTI AL note See Note Order ing Provi bobby: Adsi de león MD Not Available [address] , [place], [address], 01/14/2024 10:15:33 01/14/20 24 01/14/2024 CBC W/AUT O DIFFE RENTI AL white blood cell 7.1 10e3/ uL 4.5-13 .0 normal Not Available [address] , [place], [address], 01/14/2024 10:15:33 01/14/20 24 01/14/2024 CBC W/AUT O DIFFE RENTI AL red blood cell 4.79 10e6/ uL 4.10-5 .70 normal Not Available [address] , [place], [address], 01/14/2024 10:15:33 01/14/20 24 01/14/2024 CBC W/AUT O DIFFE RENTI AL hemoglobin 14.5 g/dL 12.0-1 6.9 normal Not Available [address] Amee Ly, [place], [address], 01/14/2024 10:15:33 01/14/20 24 01/14/2024 CBC W/AUT O DIFFE RENTI AL hematocrit 43.2 % 36.0-4 9.0 normal Not Available [address] , [place], [address], 01/14/2024 10:15:33 01/14/20 24 01/14/2024 CBC W/AUT O DIFFE RENTI AL mean cell volume 90 fL 78.0-9 8.0 normal Not Available [address] Ame[place] Ly, [place], [address], 01/14/2024 10:15:33 01/14/20 24 01/14/2024 CBC W/AUT O DIFFE RENTI AL mean cell HGB 30.3 pg 25.0-3 5.0 normal Not Available [address] , [place], [address], 01/14/2024 10:15:33 01/14/20 24 01/14/2024 CBC W/AUT O DIFFE RENTI AL mean cell HGB concentratio n 33.6 g/dL 31.0-3 6.0 normal Not Available [address] [place] Ly, [place], [address], 01/14/2024 10:15:33 01/14/20 24 01/14/2024 CBC W/AUT O DIFFE RENTI AL red cell distribution width 15.3 % 11.0-1 5.0 high Not Available [address] Ame[place] Ly, [place], [address], 01/14/2024 10:15:33 01/14/20 24 01/14/2024 CBC W/AUT O DIFFE RENTI AL platelet count 170 10e3/ uL 150-40 0 normal Not Available [address] Ame[place] Ly, [place], [address], 01/14/2024 10:15:33 01/14/20 24 01/14/2024 CBC W/AUT O DIFFE RENTI AL immature granulocyte % 0 0-1 normal Not Available [address] A[place] Ly, [place], [address], 01/14/2024 10:15:33 01/14/20 24 01/14/2024 CBC W/AUT O DIFFE RENTI AL neutrophil % 68 % 35-75 normal Not Available [address] A[place] Ly, [place], [address], 01/14/2024 10:15:33 01/14/20 24 01/14/2024 CBC W/AUT O DIFFE RENTI AL lymphocyte % 22 % 10-50 normal Not Available [address] A[place] Ly, [place], [address], 01/14/2024 10:15:33 01/14/20 24 01/14/2024 CBC W/AUT O DIFFE RENTI AL monocyte % 8 % 0-15 normal Not Available [address] Amee Ly, [place], [address], 01/14/2024 10:15:33 01/14/20 24 01/14/2024 CBC W/AUT O DIFFE RENTI AL eosinophil % 2 % 0-5 normal Not Available [address] [place] Ly, [place], [address], 01/14/2024 10:15:33 01/14/20 24 01/14/2024 CBC W/AUT O DIFFE RENTI AL basophil % 0 % 0-5 normal Not Available [address] Ame[place] Ly, [place], [address], 01/14/2024 10:15:33 01/14/20 24 01/14/2024 CBC W/AUT O DIFFE RENTI AL immature granulocyte # 0.02 x1000 /uL 0-0.05 normal Not Available [address] Ame[place] Ly, [place], [address], 01/14/2024 10:15:33 01/14/20 24 01/14/2024 CBC W/AUT O DIFFE RENTI AL neutrophil # 4.79 x1000 /uL 1.50-8 .00 normal Not Available [address] , [place], [address], 01/14/2024 10:15:33 01/14/20 24 01/14/2024 CBC W/AUT O DIFFE RENTI AL lymphocyte # 1.57 x1000 /uL 1.20-5 .20 normal Not Available [place] [address], [place], [address], 01/14/2024 10:15:33 01/14/20 24 01/14/2024 CBC W/AUT O DIFFE RENTI AL monocyte # 0.58 x1000 /uL 0.30-0 .90 normal Not Available [address] Ame[place] Ly, [place], [address], 01/14/2024 10:15:33 01/14/20 24 01/14/2024 CBC W/AUT O DIFFE RENTI AL eosinophil # 0.11 x1000 /uL 0.00-0 .50 normal Not Available [address] Ame[place] Ly, [place], [address], 01/14/2024 10:15:33 01/14/20 24 01/14/2024 CBC W/AUT O DIFFE RENTI AL basophil # 0.03 x1000 /uL 0.00-0 .30 normal Not Available [address] A[place] Ly, [place], [address], 01/14/2024 10:15:33 01/14/20 24 01/14/2024 CBC W/AUT O DIFFE RENTI AL NRBC automated 0.0 /100_ WBC Not Available [address] Ame[place] Ly, [place], [address], 01/14/2024 10:15:33 01/14/20 24 01/14/2024 CBC W/AUT O DIFFE RENTI AL performing lab see note ML - [facility] [address] [facility] [address] Not Available [address] , [place], [address], 01/14/2024 10:15:33 01/14/20 24 01/14/2024 COMP METAB OLIC PANEL note SEE NOTE Order ing Provi bobby: Adis de león MD Not Available [address] , [place], [address], 01/14/2024 10:42:47 01/14/20 24 01/14/2024 COMP METAB OLIC PANEL sodium 139 mmol/ L 136-14 5 normal Not Available [address] , [place], [address], 01/14/2024 10:42:47 01/14/20 24 01/14/2024 COMP METAB OLIC PANEL potassium 4.5 mmol/ L 3.5-5. 1 normal Not Available [address] [place] Ly, [place], [address], 01/14/2024 10:42:47 01/14/20 24 01/14/2024 COMP METAB OLIC PANEL chloride 98 mmol/ L 98-107 normal Not Available [address] [place] Ly, [place], [address], 01/14/2024 10:42:47 01/14/20 24 01/14/2024 COMP METAB OLIC PANEL carbon dioxide 33 mmol/ L 24-33 normal Not Available [address] [place] Ly, [place], [address], 01/14/2024 10:42:47 01/14/20 24 01/14/2024 COMP METAB OLIC PANEL anion gap 12.5 mmol/ L 10-20 normal Not Available [address] , [place], [address], 01/14/2024 10:42:47 01/14/20 24 01/14/2024 COMP METAB OLIC PANEL glucose 101 mg/dL 70-99 high Not Available [address] , [place], [address], 01/14/2024 10:42:47 01/14/20 24 01/14/2024 COMP METAB OLIC PANEL blood urea nitrogen 21 mg/dL 7-18 high Not Available [address] [place], [address], 01/14/2024 10:42:47 01/14/20 24 01/14/2024 COMP METAB OLIC PANEL creatinine 1.33 mg/dL 0.70-1 .30 high Not Available [address] , [place], [address], 01/14/2024 10:42:47 01/14/20 24 01/14/2024 COMP METAB OLIC PANEL GFR (estimated) 56 mL/mi n >60 low [IM TANNER NT]: The 2020 CKD-E PI equat ion is now the recom gee d stand allan. This versi on does not inclu de race, as do the 2008 and 2011 CKD-E PI creat inine and creat inine -cyst atin C equat ions. Pleas e note that the eGFR now repor tio is gener ated by the new 2020 CKD-E PI equat ion, which decre ases the eGFR for black s by up to 10% and incre ases the eGFR for non-b lacks by up to 10% in bharathi rison to the old equat ion. To bharathi re a legac y eGFR to a curre nt value , a 2009 CKD-E PI calcu lator is easil y searc hable on the inter net. Calcu lated GFR: This calcu lated GFR is advoc ated by the Natio nal Kidne y Found ation to be used as an indic ator of Chron ic Kidne y Disea se (CKD) . 5 Stage s of Chron ic Kidne y Disea se. Stage 1 90 mL/mi n or more Healt hy kidne ys or Kidne y damag e with poonam l or high GFR detai ls Stage 2 60 to 89 mL/mi n Kidne y damag e and mild decre ase in GFR detai ls Stage 3 30 to 59 mL/mi n Moder ate decre ase in GFR detai ls Stage 4 15 to 29 mL/mi n Sever e decre ase in GFR detai ls Stage 5 Less than 15 mL/mi n On dialy sis or Kidne y failu re Patie nt's clini francois statu s must be consi dered for the care of your patie nt. Not Available [address] , [place], [address], 01/14/2024 10:42:47 01/14/20 24 01/14/2024 COMP METAB OLIC PANEL BUN/creatini ne ratio 15 12-20 normal Not Available [address] , [place], [address], 01/14/2024 10:42:47 01/14/20 24 01/14/2024 COMP METAB OLIC PANEL total protein 7.8 g/dL 6.4-8. 2 normal Not Available [address] , [place], [address], 01/14/2024 10:42:47 01/14/20 24 01/14/2024 COMP METAB OLIC PANEL albumin 4.3 g/dL 3.4-5. 0 normal Not Available [address] [place] Ly, [place], [address], 01/14/2024 10:42:47 01/14/20 24 01/14/2024 COMP METAB OLIC PANEL globulin 3.5 g/dL 1.5-4. 0 normal Not Available [address] [place] Ly, [place], [address], 01/14/2024 10:42:47 01/14/20 24 01/14/2024 COMP METAB OLIC PANEL albumin/glob ulin ratio 1.2 0.5-2. 0 normal Not Available [address] , [place], [address], 01/14/2024 10:42:47 01/14/20 24 01/14/2024 COMP METAB OLIC PANEL calcium 9.4 mg/dL 8.5-10 .1 normal Not Available [address] , [place], [address], 01/14/2024 10:42:47 01/14/20 24 01/14/2024 COMP METAB OLIC PANEL osmolality serum calculated 280 mOsm/ kg 272-28 8 normal Not Available [address] , [place], [address], 01/14/2024 10:42:47 01/14/20 24 01/14/2024 COMP METAB OLIC PANEL bilirubin total 1.0 mg/dL 0.2-1. 0 normal Use of this assay is not recom gee d for patie nts under going treat ment with Eltro mbopa g due to the poten tial for false ly eleva tio resul ts. Not Available [address] , [place], [address], 01/14/2024 10:42:47 01/14/20 24 01/14/2024 COMP METAB OLIC PANEL SGOT/AST 22 U/L 15-37 normal Not Available [address] [place] Ly, [place], [address], 01/14/2024 10:42:47 01/14/20 24 01/14/2024 COMP METAB OLIC PANEL SGPT/ALT 29 U/L 16-63 normal Not Available [address] , [place], [address], 01/14/2024 10:42:47 01/14/20 24 01/14/2024 COMP METAB OLIC PANEL alkaline phosphatase total 71 U/L 46-116 normal Not Available [address] , [place], [address], 01/14/2024 10:42:47 01/14/20 24 01/14/2024 COMP METAB OLIC PANEL performing lab SEE NOTE - [facility] [address] [facility] [address] Not Available [address] , [place], [address], 01/14/2024 10:42:47 01/14/20 24 01/14/2024 LIPID PANEL note SEE NOTE Order ing Provi bobby: Adis de león MD Not Available [address] , [place], [address], 01/14/2024 10:42:48 01/14/20 24 01/14/2024 LIPID PANEL triglyceride s 164 mg/dL < 150 high Natio nal Fay stero l Educa tion Progr am (NCEP ) Guide lines : Poonam l < 150 mg/dL Borde rline 150 - 199 mg/dL High 200 - 499 mg/dL Very High >or= 500 mg/dL Not Available [address] , [place], [address], 01/14/2024 10:42:48 01/14/20 24 01/14/2024 LIPID PANEL cholesterol 158 mg/dL < 200 normal Natio nal Fay stero l Educa tion Progr am (NCEP ) Guide lines : Timoteo able < 200 mg/dL Borde rline Risk 200 - 239 mg/dL High Risk >or= 240 mg/dL Not Available [address] , [place], [address], 01/14/2024 10:42:48 01/14/20 24 01/14/2024 LIPID PANEL HDL cholesterol 55 mg/dL > 60 low Natio nal Fay stero l Educa tion Progr am Adult Treat ment Panel III (NCEP -ATP III) Guide lines : < 40 mg/dl : Low HDL-C holes terol >or= 60 mg/dl : High HDL-C holes terol Not Available [address] , [place], [address], 01/14/2024 10:42:48 01/14/20 24 01/14/2024 LIPID PANEL LDL cholesterol 70 mg/dL < 100 normal Natio nal Fay stero l Educa tion Progr am (NCEP ) Guide lines : Optim al < 100 mg/dL Near/ Above Optim al 100 - 129 mg/dL Borde rline High 130 - 159 mg/dL High 160 - 189 mg/dL Very High >or= 190 mg/dL Not Available [address] , [place], [address], 01/14/2024 10:42:48 01/14/20 24 01/14/2024 LIPID PANEL performing lab SEE NOTE ML - [facility] [address] [facility] [address] Not Available [address] , [place], [address], 01/14/2024 10:42:48 10/24/19 24 10/24/2023 - US soft tissu e mass neck [facility] Name: GWENDOLYN CARRASCO [facility] Phys: Thiago SHETH, [place] [address] : 1950 Age: 72 Sex: M Acct: [id number] Loc: CLAIRE PHONE #: Exam Date: 2023 Status : REG CLI FAX #: Rad# [id number] Unit# [id number] Admit Date: 2023 EXAMS: CPT CODE: [id number] US SOFT TISSUE MASS NECK [address] CLINIC AL INFORM ATION: Palpab le left subman dibula r mass. COMPAR JULI: No compar juli availa ble. FINDIN GS: Target ed sonogr aphy perfor med by Melani y Francisco, RDMS Left subman dibula r gland exhibi ts homoge nous echoge nicity measur ing 3.0 x 1.6 x 3.2 cm. Vascul arity within normal limits . By compar juli, the left subman dibula r gland measur es 3.1 x 3.5 x 1.6 cm, and is unrema rkable . IMPRES CLAUS: The area patien t's palpab le compla int appear s to correl ate with the left subman dibula r gland which has a grossl y normal and symmet lakisha appear ance compar ed to the right subman dibula r gland. No pathol ogic sonogr aphic findin gs If furthe r workup is warran tio regard ing patien t's compla int, enhanc ed CT the neck would be approp riate COMMUN ICATIO N: Per this writte n report This report is genera tio using voice recogn ition comput er softwa re. Inadve rtent errors may have occurr ed while dictat ing report . Common sense approa ch is apprec iated and do not hesita te to call for clarif icatio n when necess stephon. PAGE 1 Signed Report (FÉLIX NUED) [facility] Name: GWENDOLYN CARRASCO [employer] Phys: Thiago SHETH, [place] [address] : 1950 Age: 72 Sex: M Acct: [id number] Loc: PiaMONA PHONE #: [phone] Exam Date: 2023 Status : REG CLI FAX #: Rad# [id number] Unit# [id number] Admit Date: 2023 EXAMS: CPT CODE: [id number] [id number] US SOFT TISSUE MASS NECK 06091 Electr onical ly Signed by Xenia De León on 2023 at 1047 Report ed and signed by: NA De León M.D. CC: Chastity Ewing ce [employer] REPA[employer]ER; Adis Tavares MD Dictat ed Date/T moises: 2023 (1047) Techno logist : LINDSA Y FRANCISCO Transc ribed Date/T moises: 2023 (1047) Transc riptio nist: DR.HAR KORIN pérez Signat ure Date/T moises: 2023 (1047) Printe d Date/T moises: 2023 (1050) BATCH NO: N/A PAGE 2 Signed Report CC'ed Logic: Orderi ng Provid er: THIAGO ARCEO Attend ing Provid er: THIAGO ARCEO Referr ing Provid er: THIAGO ARCEO Consul ting Provid er: AARON [address] [place] [address] , [place], [address], 10/27/2023 13:51:00 10/25/19 24 10/25/2023 - ECHO w/spe c/col or flow [facility] Name: GWENDOLYN CARRASCO [facility] Phys: Thiago SHETH, [place] [address] : 1950 Age: 72 Sex: M Acct: [id number] Loc: CLAIRE PHONE #: [phone] Exam Date: 2023 Status : DEP CLI FAX #: Rad# [id number] Unit# [id number] Admit Date: 2023 EXAMS: CPT CODE: [id number] ECHO W/SPEC /COLOR FLOW 62464 Reason for study: Tejada ry artery diseas e/card iomyop athy/c oronar y artery bypass grafti ng M-mode was not record ed other than the left atrium of 4.1 common aortic root 4.0 and a tricus pid regurg itant jet veloci ty less than 2.0 m/s Impres claus: 1. Very techni catalina diffic ult study, with Limite d ultras ound window s obtain ed. The left ventri yao or chambe r appear s to be mildly dilate d with probab le border line functi on of the heart at 50%. There is mild to modera te concen tric hypert rophy of the left ventri yao. There is Dopple r eviden ce for impair ed relaxa tion of the left ventri yao 2. Endoca rdium not well visual ized in some views. There is abnorm al septal wall motion but no other appare nt wall motion abnorm alitie s 3. Mild left atrial enlarg ement, with normal right atrial size 4. Normal right ventri cular size and functi on 5. Normal mitral valve, with no appare nt mitral insuff icienc y 6. Aortic valve not well visual ized 7. No perica rdial effusi on 8. Mild aortic root dilata tion measur ing 4.0 cm 9. Normal tricus pid valve with tricus pid regurg itant jet veloci ty less than 2.0 m/s implyi ng normal right ventri cular systol ic pressu re Electr onical ly Signed by ADIS TAVARES MD on 2023 at 1255 Report ed and signed by: ADIS TAVARES MD CC: Chastity rico APRN; Adis Tavarse MD Dictat ed Date/T moises: 2023 (1255) Techno logist : LUCIA GONZALEZ Transc ribed Date/T moises: 2023 (1255) Transc riptio nist: DR.LOH ALEX Trevino onic Signat ure Date/T moises: 2023 (1255) Printe d Date/T moises: 2023 (1258) BATCH NO: N/A PAGE 1 Signed Report CC'ed Logic: Orderi ng Provid er: THIAGO ARCEO Attend ing Provid er: THIAGO ARCEO Referr ing Provid er: THIAGO ARCEO Consul ting Provid er: AARON RICO APRN CHASTITY glover [address] , [place], [address], 10/27/2023 13:51:00 11/06/19 24 11/06/2023 elect chaz albaradogr am No observ ation record ed. ROSA ISELA [address], [place], [address], 11/06/2023 09:29:54 11/06/19 24 11/06/2023 elect rocar diogr am No observ ation record ed. ROSA ISELA [address], [place], [address], 11/06/2023 11:16:09 11/06/19 24 11/06/2023 cardi ac monit or No observ ation record ed. [email or web address] Not Available 14:48:19 10/21/19 25 elect rocar diogr am No observ ation record ed. ROSA ISELA [address], [place], [address], 10/20/2024 08:05:20 10/21/19 25 elect rocar diogr am No observ ation record ed. [email or web address] Not Available 2024 11:01:23 Result Notes None recorded. Problems Name Problem SNOMED Code Status Onset Date Resolution Date Notes Provider Name and Address Organization Details Recorded Time Diabetes mellitus 13544548 Active 2015 Diabetes mellitus Not Available [facility] 4 18:37:34 Hypertens dannielle disorder 64769926 Active 2015 Hypertens ion Not Available [facility] 4 18:37:34 Coronary arteriosc lerosis 87282817 Active 2015 Coronary artery disease Not Available [facility] 4 18:37:34 Hypertens dannielle heart disease without congestiv e heart failure 08197689 Active 2015 Hypertens dannielle heart disease without congestiv e heart failure Not Available [facility] 4 18:37:34 Obesity 387625584 Active 2015 Obesity Not Available [facility] 4 18:37:34 Disorder of carotid artery 673038323 Active 2017 Not Available [facility] 4 18:37:34 Mixed hyperlipi demia 861658298 Active 2015 Mixed hyperlipi demia Not Available [facility] 4 18:37:34 Diastolic dysfuncti on 4668058 Active 2022 Not Available [facility] 4 18:37:34 Electroca rdiogram abnormal 054842203 Active 2022 Not Available [facility] 4 18:37:34 Chest pain 88048811 Active 2022 Not Available [facility] 4 18:37:34 Palpitati ons 32998577 Active 2022 Not Available [facility] 4 18:37:34 Ventricul ar premature complex 642926435 Active 2022 Not Available [facility] 4 18:37:34 Angina pectoris 680383024 Active 2022 Not Available [facility] 4 18:37:34 Cardiovas cular stress test abnormal 087099889 Active 2022 Not Available [facility] 4 18:37:34 Essential hypertens ion 50724171 Active 2022 Not Available [facility] 4 18:37:34 Type 2 diabetes mellitus without complicat ion 675155595 Active 2022 Not Available [facility] 4 18:37:34 Pneumonia 041050095 Active Not Available [facility] 4 18:37:34 History of cardiac catheteri zation 56052980643 100 Active Not Available [facility] 4 18:37:34 Sepsis 34223894 Active Not Available [facility] 4 18:37:35 Edema of lower extremity 787558459 Active 2023 Not Available [facility] 4 18:37:34 Cardiomyo phuc 32422893 Active 2023 Adis Tavares MD [address] [place] [address],[address], [address] , [facility] & [place] 4 11:01:05 Paroxysma l atrial fibrillat ion 264842574 Active 2023 Adis Tavares MD [address] [place] [address],[address], [address] [facility] [place] [facility] 11:01:23 Problem Notes None recorded. Procedures Surgical History Date Name Laterality Status Provider Name and Address Organization Details Recorded Time 023 CABG completed Mi Sanjeev [place] - [place] & [place] 07/18/2023 09:03:45 023 LEFT HEART CATHETERIZATION (SURG) completed Mi Sanjeev [place] & [place] 07/18/2023 09:03:12 008 Cardiac Catheterization completed Mi Sanjeev [place] 12/09/2022 14:38:33 007 Cardiac Catheterization completed Mi [place]jeev [place] 12/09/2022 14:37:37 007 Cardiac Catheterization [place] Mi [place]jeev [place] 12/09/2022 14:36:15 005 Cardiac Catheterization completed Mi Sanjeev [place] 12/09/2022 14:35:35 004 Cardiac Catheterization completed [place]jeev [place] 12/09/2022 14:34:06 003 Cardiac Catheterization completed Mi Sanjeev [place] 12/09/2022 14:33:37 003 Cardiac Catheterization completed Mi Sanjeev [place] 12/09/2022 14:32:38 thoracentesis completed Kellylucinda Saavedra [place] 08/19/2023 13:10:11 Hernia Repair completed Kelly [place] 08/19/2023 13:10:36 sinusotomy, multiple completed Kellylucinda Saavedra [place] & [place] 08/19/2023 13:10:48 Cardiovascular Surgery completed Vicky Harman [place] & [place] 11/06/2023 08:32:54 Imaging Results Imaging Date Name Status LastModified by Organization Details LastModified Time 10/24/2023 - US soft tissue mass neck completed [email or web address] [address] , [place], [address], 10/27/2023 13:51:00 10/25/2023 - ECHO w/spec/color flow completed [email or web address] [address] , [place], [address], 10/27/2023 13:51:00 11/06/2023 electrocardiogram completed [address], [place], [address], 11/06/2023 09:29:54 11/06/2023 electrocardiogram completed [address], [place], [address], 11/06/2023 11:16:09 11/06/2023 equipment monitor phototypesetting completed [email or web address] Inform ation not available 11/06/2023 14:48:19 10/20/2024 electrocardiogram completed [address], [place], [address], 10/20/2024 08:05:20 10/20/2024 electrocardiogram completed [email or web address] Informa tion not available 10/20/2024 11:01:23 Procedure Notes None recorded. Medical Equipment None Reported. Allergies Allergen ID Allergen Name Allergen Category Reaction Reaction Severity Criticality Documentation Date Start Date Code Code System Note Provider Name and Address Organization Details Recorded Time 2182 Penicilli n Not available Not available Not available Not available 04/24/2022 47814 RxNorm React ion: Unkno wn, sever ity: Unkno wn Not Available [facility] 22:21:56 Medications Name Sig Start Date Stop Date Status Note LastModified by Organization Details LastModified Time mucus er 600mg tab TAKE 2 BY MOUTH TWICE DAILY FOR 5 DAYS 09/03 completed Not Available Not Available Not Available cyclobenzap rine 10 mg tablet TAKE 1 TABLET BY MOUTH EVERY 8 HOURS NEEDED active Not Available Not Available No t Available furosemide 40 mg tablet Take 1 tablet every day by oral route. active Not Available Not Available No t Available vitamin E 670 mg (1,000 unit) capsule Take 450 mg by oral route. 10/20 completed Not Available Not Available Not Available metformin 500 mg tablet 500 mg by oral route. active Not Available Not Available No t Available cyanocobala min (vit B-12) ER 1,000 mcg tablet,exte nded release 10/20 completed Not Available Not Available Not Available carvedilol 6.25 mg tablet Take 6.25 mg by oral route. 09/03 completed Not Available Not Available Not Available doxycycline hyclate 100 mg capsule TAKE 1 CAPSULE BY MOUTH TWICE DAILY FOR 5 DAYS 10/20 completed Not Available Not Available Not Available azithromyci n 250 mg tablet TAKE 2 TABLETS BY MOUTH ON DAY 1, AND THEN TAKE 1 TABLET BY MOUTH ONCE A DAY ON DAY 2 THROUGH DAY 5 08/19 completed Not Available Not Available Not Available aspirin 325 mg tablet 1 tablet Orally Twice a day 08/19 completed SW Not Available Not Available Not Available amiodarone 200 mg tablet TAKE 1 TABLET BY MOUTH TWICE DAILY active Not Available Not Available No t Available hydrocodone 5 mg-acetamin ophen 325 mg tablet TAKE 1 TABLET BY MOUTH EVERY 8 HOURS NEEDED FOR PAIN FOR 5 DAYS. active Not Available Not Available No t Available prednisone 20 mg tablet TAKE 1 TABLET BY MOUTH 2 TIMES A DAY FOR 7 DAYS - TAKE WITH FOOD OR MILK active Not Available Not Available No t Available clopidogrel 75 mg tablet TAKE 1 TABLET DAILY active Not Available Not Available No t Available aspirin 81 mg tablet,elizabeth yed release 08/19 completed Not Available Not Available Not Available sildenafil 100 mg tablet TAKE 1 TABLET BY MOUTH EVERY DAY NEEDED 09/03 completed Not Available Not Available Not Available oxycodone-a cetaminophe n 5 mg-325 mg tablet TAKE 1 TABLET BY MOUTH EVERY 6 HOURS NEEDED FOR PAIN 10/20 completed Not Available Not Available Not Available Nitrostat 0.4 mg sublingual tablet 1 tablet under the tongue and allow to dissolve as needed Sublingua l prn chest pain for 30 days 2021 active SW Not Available Not Available Not Avai lable aspirin 325 mg tablet,elizabeth yed release Take 325 mg by oral route. 08/19 completed Not Available Not Available Not Available diphenhydra mine 25 mg capsule Take 25 mg by oral route. 08/19 completed Not Available Not Available Not Available calcium polycarboph il 625 mg tablet 625 mg by oral route. 07/15 completed Not Available Not Available Not Available furosemide 20 mg tablet TAKE 1 TABLET BY MOUTH ONCE DAILY 09/03 completed Not Available Not Available Not Available metoprolol succinate ER 25 mg tablet,exte nded release 24 hr TAKE 1 TABLET DAILY 2024 active Not Available Not Available Not Avai lable levofloxaci n 500 mg tablet TAKE 1 TABLET BY MOUTH ONCE DAILY FOR 7 DAYS 12/11 completed Not Available Not Available Not Available albuterol sulfate HFA 90 mcg/actuati on aerosol inhaler 07/15 completed Not Available Not Available Not Available dexamethaso ne 0.5 mg tablet Take 0.5 mg by oral route. 08/19 completed Not Available Not Available Not Available cefdinir 300 mg capsule TAKE 1 CAPSULE BY MOUTH TWICE DAILY FOR 10 DAYS active Not Available Not Available No t Available losartan 100 mg tablet Take 100 mg by oral route. active Not Available Not Available No t Available pseudoephed rine 60 mg tablet Take 60 mg by oral route. 09/03 completed Not Available Not Available Not Available rosuvastati n 20 mg tablet TAKE 1 TABLET DAILY active Not Available Not Available No t Available Klor-Con M20 mEq tablet,exte nded release Take 1 tablet every day by oral route. 10/20 completed Not Available Not Available Not Available amiodarone 100 mg tablet Take 1 tablet every day by oral route. 2024 active Not Available Not Available Not Avai lable metoprolol tartrate 25 mg tablet Take 1 tablet twice a day by oral route. 11/10 completed Not Available Not Available Not Available metformin ER 500 mg tablet,exte nded release 24hr (osmotic) 07/15 completed Not Available Not Available Not Available Zithromax Z-Harrison as directed 08/19 completed Not Available Not Available Not Available cholecalcif [place] (vitamin D3) 25 mcg (1,000 unit) tablet 10/20 completed Not Available Not Available Not Available potassium chloride ER 20 mEq tablet,exte nded release Take 1 tablet every day by oral route. 10/20 completed Not Available Not Available Not Available BinaxNOW COVID-19 Ag Self Test kit TEST DIRECTED TODAY 12/11 completed Not Available Not Available Not Available aspirin 81 mg capsule Take 1 capsule every day by oral route. active Not Available Not Available No t Available Paxlovid 300 mg (150 mg x 2)-100 mg tablets in a dose pack 12/11 completed Not Available Not Available Not Available Vitals Date Recorded Body height Body mass index (BMI) Body weight Oxygen saturation Oxygen saturation in Arterial blood by Pulse oximetry Heart rate Systolic blood pressure Diastolic blood pressure Provider Name and Address Organization Details Last Updated DateTime 4 167.64 cm 37.9 kg/m2 402597. 49 g 93 % 93 % 64 /min 110 mm[Hg] 78 mm[Hg] Tara Padilla [facility] & [place] 4 10:51:10 Date Recorded Body height Body mass index (BMI) Body weight Oxygen saturation Oxygen saturation in Arterial blood by Pulse oximetry Heart rate Systolic blood pressure Diastolic blood pressure Provider Name and Address Organization Details Last Updated DateTime 4 167.64 cm 37.9 kg/m2 642491. 21 g 97 % 97 % 68 /min 126 mm[Hg] 82 mm[Hg] Vicky de león [facility] & [place] 4 08:48:38 Date Recorded Body height Body mass index (BMI) Body weight Oxygen saturation Oxygen saturation in Arterial blood by Pulse oximetry Heart rate Systolic blood pressure Diastolic blood pressure Provider Name and Address Organization Details Last Updated DateTime 4 167.64 cm 37.6 kg/m2 266562. 02 g 94 % 94 % 72 /min 120 mm[Hg] 80 mm[Hg] Alexa Henry [facility] & [place] 4 09:05:28 Date Recorded Body height Body weight Oxygen saturation Oxygen saturation in Arterial blood by Pulse oximetry Heart rate Systolic blood pressure Diastolic blood pressure Provider Name and Address Organization Details Last Updated DateTime 4 167.64 cm 768039. 43 g 93 % 93 % 89 /min 144 mm[Hg] 78 mm[Hg] Vicky CONNOR - [facility]NT [facility] & [place] 4 08:21:05 Date Recorded Body height Body mass index (BMI) Body weight Oxygen saturation Oxygen saturation in Arterial blood by Pulse oximetry Heart rate Systolic blood pressure Diastolic blood pressure Provider Name and Address Organization Details Last Updated DateTime 5 167.64 cm 37 kg/m2 961055. 65 g 92 % 92 % 81 /min 112 mm[Hg] 70 mm[Hg] Vicky Farley sarthak NIKOLAS - BIR[facility] & [place] 5 08:11:28 Social History Question Answer Notes LastModified by [employer] Details LastModified Time Tobacco Smoking Status Former Smoker [facility] [place] 12/11/2022 07:57:08 When Did You Quit Smoking? 16+yearssinc elastcigaret te [email or web address] Information not available 08/19/2023 How Many Years Have You Smoked Tobacco? 10 [email or web address] Information not available 06/23/2023 Sex: Unknown Functional Status Question Answer Note LastModified by [employer] Details LastModified Time Do you use any illicit or recreational drugs? No [email or web address] Information not available 05/16/2022 What is your level of alcohol consumption? None [email or web address] Information not available 05/16/2022 Mental Status None recorded. Family History Relationship Description Onset Age of this Age Resolved Age Notes LastModified by Organization Details LastModified Time Father No current problems or disability [email or web address] Not available 0 05/16/2022 16:04:55 Mother No current problems or disability [email or web address] Not available 0 05/16/2022 16:04:55 Medical History Condition Response Coronary Artery Disease Y Diabetes Y Congestive Heart Failure (CHF) Y Hyperlipidemia Y Hypertension Y Past Encounters Encounter ID Performer Location Encounter Start Date Encounter Closed Date Diagnosis/Indication Diagnosis SNOMED-CT Code Diagnosis ICD10 Code Diagnosis Note [id number] JESUS DIGGS NP, S [address] [place] [address] 05/17/2022 08:42:55 05/17/2022 09:48:30 Coronary arteriosclerosis 21385540 I25.10 Essential hypertension 14589939 I10 Type 2 francisco betes mellitus without complication 271700874 E11.9 Carotid ar zeny stenosis 56704534 I65.23 Hyperlipidemia 26267792 E78.5 Hypertensi ve heart disease 37696424 I11.9 Erectile dysfunction 860 234683 F52.21 [id number] Adis Tavares MD [address] [place], [place] [phone] 12/11/2022 07:44:14 12/11/2022 08:14:24 Coronary arteriosclerosis 37445156 I25.10 Diabetes mellitus 625779 09 E11.9 Hypertensive disorder 38 360017 I10 Mixed hyperlipidemia 267 178665 E78.2 Diastolic dysfunction 35 48667 I51.9 [id number] Adis Tavares MD [address] [place], [place] [phone] 06/23/2023 14:37:54 06/23/2023 15:16:52 Coronary arteriosclerosis 26647472 I25.10 Diabetes mellitus 483867 09 E11.9 Hypertensive disorder 38 894265 I10 Mixed hyperlipidemia 267 821071 E78.2 Diastolic dysfunction 35 04576 I51.9 Electrocar diogram abnormal 107766829 R94.31 Chest pain 00565688 R07. 9 Palpitations 85910320 R0 0.2 Ventricula r premature complex 424809503 I49.3 [id number] Adis Tavares MD [address] [place] [id number] 07/08/2023 09:23:19 07/08/2023 10:34:00 Angina pectoris 672778154 I20.9 Cardiovasc ular stress test abnormal 793124308 R94.39 Coronary arteriosclerosis 16188456 I25.10 Mixed hyperlipidemia 267 246903 E78.2 Electrocar diogram abnormal 847449601 R94.31 Essential hypertension 81352897 I10 Diastolic dysfunction 35 30646 I51.9 Ventricula r premature complex 289436488 I49.3 Type 2 francisco betes mellitus without complication 041109735 E11.9 [id number] Pk Kwong MD [facility] [address] [place] [address] [address] [place] [phone] 08/19/2023 12:53:15 08/19/2023 13:32:09 Postoperative retention of urine 022721828 R33.8 Type 2 francisco betes mellitus 11579039 E11.9 Coronary arteriosclerosis 98689793 I25.10 Essential hypertension 53528079 I10 [id number] Adis Tavares MD [address]Z [address] [place] [address] 6 09/03/2023 10:38:01 09/03/2023 11:09:15 Angina pectoris 662369259 I20.9 Edema of l ower extremity 366760409 R60.0 Coronary arteriosclerosis 56757849 I25.10 Diastolic dysfunction 35 62023 I51.9 Essential hypertension 88573472 I10 Mixed hyperlipidemia 267 827110 E78.2 Obesity 799730343 E66.9 Type 2 francisco betes mellitus without complication 974479748 E11.9 [id number] Adis Tavares MD [address] [place] [id number] 10/08/2023 10:14:42 10/08/2023 11:02:27 Cardiomyopathy 30731374 I42.9 Coronary arteriosclerosis 59898849 I25.10 History of coronary artery bypass grafting 973065056 Z95.1 Paroxysmal atrial fibrillation 979286343 I48.0 Diastolic dysfunction 35 76693 I51.9 Electrocar diogram abnormal 803461120 R94.31 Essential hypertension 48906813 I10 [id number] Adis Tavares MD [address] [place] [id number] 11/06/2023 08:39:59 11/06/2023 09:03:09 Cardiomyopathy 78854895 I42.9 Coronary arteriosclerosis 94608606 I25.10 Essential hypertension 42382316 I10 Diastolic dysfunction 35 28285 I51.9 Paroxysmal atrial fibrillation 269811131 I48.0 Type 2 francisco betes mellitus without complication 931934006 E11.9 Ventricula r premature complex 247843251 I49.3 [id number] Adis Tavares MD [address] [place], [place] [phone] 01/14/2024 08:39:46 01/14/2024 09:27:07 Mixed hyperlipidemia 595977621 E78.2 Cardiomyopathy 86977263 I42.9 Coronary arteriosclerosis 29646852 I25.10 Diastolic dysfunction 35 10186 I51.9 Paroxysmal atrial fibrillation 000333014 I48.0 Type 2 francisco betes mellitus without complication 827600965 E11.9 Ventricula r premature complex 116528254 I49.3 [id number] Adis Tavares MD [address] [place], [place] [phone] 04/15/2024 08:03:03 04/15/2024 08:26:17 Mixed hyperlipidemia 965194162 E78.2 Cardiomyopathy 16045244 I42.9 Coronary arteriosclerosis 25613473 I25.10 Diastolic dysfunction 35 43756 I51.9 Paroxysmal atrial fibrillation 514670775 I48.0 Type 2 francisco betes mellitus without complication 420614917 E11.9 Ventricula r premature complex 612950885 I49.3 [id number] Adis Tavares MD [address] [place], [place] [phone] 10/20/2024 07:48:54 10/20/2024 08:16:12 Mixed hyperlipidemia 121395376 E78.2 Cardiomyopathy 38763911 I42.9 Coronary arteriosclerosis 72799344 I25.10 Diastolic dysfunction 35 17886 I51.9 Paroxysmal atrial fibrillation 156053987 I48.0 Type 2 francisco betes mellitus without complication 027797992 E11.9 Ventricula r premature complex 262205920 I49.3 Health Concerns Section Related Observation LastModified by Organization Detai ls LastModified Time None Recorded Concern Status LastModified by Organization Details LastModified Time None Recorded Advance Directives Directive None Recorded Payers Insurance Date Sequence Insurance Name Policy Number Policy Silverio Covered Member ID Silverio Member ID Guarantor Name 10/20/2024 1 [facility] (MEDICARE REPLACEMENT/A DVANTAGE - PPO) [id number] Angus Holcomb [id number] Angus Holcomb Notes Date Note Type Note Provider Name and Address Organization Details Recorded Time 10/08/2023 text/html continues to improve. Now he is off oxygen. He is down to 200 mg on the amiodarone. It has now been 3 months since the bypass. No chest pain pressure or tightness. Does have some dyspnea as well as fatigue but this is also improving. No edema orthopnea or PND Adis Tavares MD [address] [place] [address],[address], [place], [address], [facility] & [place] 10/09/2023 15:54:41 11/06/2023 text/html Patient has been doing very well. [place]asta through cardiac rehab. Here today to go over test results. He feels well. No palpitations or fluttering. No edema. No chest pain pressure or tightness Adis Tavares MD [address] [place] [address],[address], [place], [address], [facility] & [place] 11/06/2023 09:09:39 01/14/2024 text/html doing well. He i s done with cardiac rehabilitation. Still with some fatigue but getting along well and not having any issues. No edema. No chest pain pressure or tightness Adis Tavares MD [address] [place] [address],[address], [place], [address], [facility] & [place] 01/14/2024 16:48:02 04/15/2024 text/html doing very well. Here to go over blood work no chest pain pressure or tightness. No shortness of breath. He has been very active Adis Tavares MD [address] [place] [address],[address], [place], [address], [facility] & [place] 04/15/2024 13:49:58 10/20/2024 text/html Doing very well. No chest pain pressure or tightness. No shortness of breath. Blood pressure and heart rate have been under excellent control. Overall he feels well Adis Tavares MD [address] [place] [address],[address], [place], [address], [facility] & [place] 10/20/2024 09:12:11
== END 2025-01-03 23:59 | disposition home or self-care (01) ==
LOC: RAD 14:33
PROVIDERS: PCP Nurse Practitioner Family; Visit Provider Nurse Practitioner Family
DX: I51.7 Cardiomegaly (principal)
CPT/HCPCS: 71046

== ENCOUNTER 2025-02-07 10:47 | Outpatient (CLI) | payer MEDICARE, SELFPAY ==
--- NOTE | 2025-02-07 10:49 | FL_ITS ---
FINAL REPORT CLINICAL HISTORY: ASPIRATION PNEUMONIA 16.6 mGy DAP 269.55 fluoro 2:24 FINDINGS: FLUOROSCOPY LESS THAN 1 HOUR HISTORY: Fluoroscopy guidance. FINDINGS: Fluoroscopic guidance was provided for barium swallow. A total of 2:24 minutes of fluoroscopy time were used. DAP: 269.55 by mGy IMPRESSION: As above. Reviewed, Interpreted and Dictated by Mamadou Gomez MD Transcribed by Arianna Mckenzie Authenticated and [facility]
--- OUTSIDE RECORDS SUMMARY | 2025-02-07 11:19 | XMS_ITS | Data Portability ---
Author Organization [place] - [facility] Address [address] [place] [address] Care Team Providers Care Manager Of Medical Name Role Phone CHASTITY ROSAS Primary Care Provider Assessment Encounter Date Assessment Date Assessment LastModified [...] dysfunction with normal pressures in the heart [email or web address] Not available 10/09/2023 15:54:11 11/06/2023 11/06/2023 Edema has completely resolved. Feels well. Blood pressure and heart rate are under excellent control. He is doing cardiac rehabilitation. EKG today shows normal sinus rhythm with old inferior lateral wall HI and nonspecific changes. His echocardiogram shows borderline [...] beats. Patient was asymptomatic marquise Not available 01/14/2024 16:47:14 04/15/2024 04/15/2024 Fatigue [...] AND IT IS BOTH ACCURATE AND COMPLETE. marquise Not available 04/15/2024 13:49:35 10/20/2024 10/20/2024 Doing [...] THIS DOCUMENTATION, This note was dictated using [employer] software. If something is unclear, or does not make sense, please do not hesitate to contact our office at [phone] for clarification. [email or web address] Not available 10/20/2024 09:11:53 Plan of Treatment Reminders Order Date Submit Date Provider Last Modified By Organization Details Last Modified Time Details Appointments OV EST 30 2024 10:30A M Adis Tavares MD Not available Not available Not available Lab lipid panel, serum 2023 024 [facility] (Registration ), [place], [address], 01/14/2024 10:42:49 CBC 2023 024 [facility] (Registration ), [place], [address], 01/21/2024 08:13:19 CMP, serum or plasma 2023 024 [facility] (Registration ), [facility] [place], [address], 01/14/2024 10:42:47 Referral None recorded. Procedures None recorded. Surgeries None recorded. Imaging electroca rdiogram 2024 025 [facility], [address] [place] [address] [address], [place], [address], 10/20/2024 09:12:07 electroca rdiogram [address] [facility], [address] [place] [address] [address], [place], [address], 11/06/2023 09:29:54 US, echocardi ogram, transthor acic, complete, w/ color flow 2023 024 [facility] (Centralized Scheduling), [facility] [place], [address], 10/20/2023 08:25:58 Medication Orders None recorded. Patient TargetsNo targets recorded. Patient InstructionsNo instructions recorded. Reason for Referral None Reported. Results Created Date Observation Date Name Description Value Unit Range Abnormal Flag Note LastModifiedBy Organization Detail LastModifiedTime 09/24/19 24 09/24/2023 GLUCO SE POINT OF CARE note See Note Order ing Provi bobby: Adis de león MD Not Available [place] [address] [place], [address], 09/24/2023 10:33:30 09/24/19 24 09/24/2023 GLUCO SE POINT OF CARE glucose point of care 89 mg/dL 70-99 normal Not Available [place] [address] [place], [address], 09/24/2023 10:33:30 09/24/19 24 09/24/2023 GLUCO SE POINT OF CARE performing lab see note [facility] - [facility] [address] [place] [address] Not Available [address] , [place], [address], 09/24/2023 10:33:30 10/03/19 24 10/03/2023 GLUCO SE POINT OF CARE note See Note Order ing Provi bobby: Adis de león MD Not Available [address] , [place], [address], 10/03/2023 10:30:44 10/03/19 24 10/03/2023 GLUCO SE POINT OF CARE glucose point of care 92 mg/dL 70-99 normal Not Available [address] , [place], [address], 10/03/2023 10:30:44 10/03/19 24 10/03/2023 GLUCO SE POINT OF CARE performing lab see note [facility] - [facility] [address] [place] [address] Not Available [address] , [place], [address], 10/03/2023 10:30:44 10/06/19 24 10/06/2023 GLUCO SE POINT OF CARE note See Note Order ing Provi bobby: Adis de león MD Not Available [address] [place], [address], 10/06/2023 10:32:54 10/06/19 24 10/06/2023 GLUCO SE POINT OF CARE glucose point of care 87 mg/dL 70-99 normal Not Available [address] [place], [address], 10/06/2023 10:32:54 10/06/19 24 10/06/2023 GLUCO SE POINT OF CARE performing lab see note [facility]PO - [facility]PO [address] [place] [address] Not Available [address] , [place], [address], 10/06/2023 10:32:54 10/20/19 24 10/20/2023 GLUCO SE POINT OF CARE note See Note Order ing Provi bobby: Adis de león MD Not Available [address] , [place], [address], 10/20/2023 10:47:31 10/20/19 24 10/20/2023 GLUCO SE POINT OF CARE glucose point of care 95 mg/dL 70-99 normal Not Available [address] , [place], [address], 10/20/2023 10:47:31 10/20/19 24 10/20/2023 GLUCO SE POINT OF CARE performing lab see note [facility] [address] [place] [address] Not Available [address] , [place], [address], 10/20/2023 10:47:31 10/24/19 24 10/24/2023 GLUCO SE POINT OF CARE note See Note Order ing Provi bobby: Adis de león MD Not Available [address] , [place], [address], 10/24/2023 10:28:06 10/24/19 24 10/24/2023 GLUCO SE POINT OF CARE glucose point of care 81 mg/dL 70-99 normal Not Available [address] , [place], [address], 10/24/2023 10:28:06 10/24/19 24 10/24/2023 GLUCO SE POINT OF CARE performing lab see note MWPO - POC [address] [place] [address] Not Available [address] , [place], [address], 10/24/2023 10:28:06 11/03/19 24 11/03/2023 GLUCO SE POINT OF CARE note See Note Order ing Provi bobby: Adis de león MD Not Available [address] , [place], [address], 11/03/2023 10:39:34 11/03/19 24 11/03/2023 GLUCO SE POINT OF CARE glucose point of care 111 mg/dL 70-99 high Not Available [address] , [place], [address], 11/03/2023 10:39:34 11/03/19 24 11/03/2023 GLUCO SE POINT OF CARE performing lab see note [facility] [address] [place] [address] Not Available [address] , [place], [address], 11/03/2023 10:39:34 11/05/19 24 11/05/2023 GLUCO SE POINT OF CARE note See Note Order ing Provi bobby: Adis de león MD Not Available [address] , [place], [address], 11/05/2023 10:46:05 11/05/19 24 11/05/2023 GLUCO SE POINT OF CARE glucose point of care 127 mg/dL 70-99 high Not Available [address] [place], [address], 11/05/2023 10:46:05 11/05/19 24 11/05/2023 GLUCO SE POINT OF CARE performing lab see note [facility]PO - [facility]PO [address] [place] [address] Not Available [address] , [place], [address], 11/05/2023 10:46:05 11/07/19 24 11/07/2023 GLUCO SE POINT OF CARE note See Note Order ing Provi bobby: Adis de león MD Not Available [address] , [place], [address], 11/07/2023 10:44:34 11/07/19 24 11/07/2023 GLUCO SE POINT OF CARE glucose point of care 122 mg/dL 70-99 high Not Available [address] , [place], [address], 11/07/2023 10:44:34 11/07/19 24 11/07/2023 GLUCO SE POINT OF CARE performing lab see note [place] [address] [place] [address] Not Available [address] , [place], [address], 11/07/2023 10:44:34 11/10/19 24 11/10/2023 GLUCO SE POINT OF CARE note See Note Order ing Provi bobby: Adis de león MD Not Available [address] , [place], [address], 11/10/2023 10:35:53 11/10/19 24 11/10/2023 GLUCO SE POINT OF CARE glucose point of care 128 mg/dL 70-99 high Not Available [address] [place], [address], 11/10/2023 10:35:53 11/10/19 24 11/10/2023 GLUCO SE POINT OF CARE performing lab see note [facility] [address] [place] [address] Not Available [address] [place], [address], 11/10/2023 10:35:53 11/12/19 24 11/12/2023 GLUCO SE POINT OF CARE note See Note Order ing Provi bobby: Adis de león MD Not Available [address] , [place], [address], 11/12/2023 10:43:06 11/12/19 24 11/12/2023 GLUCO SE POINT OF CARE glucose point of care 101 mg/dL 70-99 high Not Available [address] , [place], [address], 11/12/2023 10:43:06 11/12/19 24 11/12/2023 GLUCO SE POINT OF CARE performing lab see note [facility] - [id number] [facility] [address] Not Available [address] , [place], [address], 11/12/2023 10:43:06 12/01/19 24 12/01/2023 PROTH ROMBI N TIME note SEE NOTE Order ing Provi bobby: Adis de león MD Not Available [address] , [place], [address], 12/01/2023 12:05:29 12/01/19 24 12/01/2023 PROTH ROMBI N TIME prothrombin time patient 11.7 secon ds 9.4-11 .6 high Not Available [address] [place], [address], 12/01/2023 12:05:29 12/01/19 24 12/01/2023 PROTH ROMBI [...] ..... ..... ... >2.0- 3.0 Not Available [address] , [place], [address], 12/01/2023 12:05:29 12/01/19 24 12/01/2023 MELLO De León TIME performing lab SEE NOTE ML - [facility] [address] [facility] [address] Not Available [address] , [place], [address], 12/01/2023 12:05:29 12/05/19 24 12/05/2023 GLUCO SE POINT OF CARE note See Note Order ing Provi bobby: Adis de león MD Not Available [address] , [place], [address], 12/05/2023 10:47:00 12/05/19 24 12/05/2023 GLUCO SE POINT OF CARE glucose point of care 90 mg/dL 70-99 normal Not Available [address] , [place], [address], 12/05/2023 10:47:00 12/05/19 24 12/05/2023 GLUCO SE POINT OF CARE performing lab see note PO - MWPO [address] [place] [address] Not Available [address] , [place], [address], 12/05/2023 10:47:00 12/08/19 24 12/08/2023 GLUCO SE POINT OF CARE note See Note Order ing Provi bobby: Adis de león MD Not Available [address] , [place], [address], 12/08/2023 10:36:11 12/08/19 24 12/08/2023 GLUCO SE POINT OF CARE glucose point of care 119 mg/dL 70-99 high Not Available [address] , [place], [address], 12/08/2023 10:36:11 12/08/19 24 12/08/2023 GLUCO SE POINT OF CARE performing lab see note [facility] [address] [place] [address] Not Available [address] , [place], [address], 12/08/2023 10:36:11 12/10/19 24 12/10/2023 GLUCO SE POINT OF CARE note See Note Order ing Provi bobby: Adis de león MD Not Available [address], [place], [address], 12/10/2023 10:39:23 12/10/19 24 12/10/2023 GLUCO SE POINT OF CARE glucose point of care 98 mg/dL 70-99 normal Not Available [address] , [place], [address], 12/10/2023 10:39:23 12/10/19 24 12/10/2023 GLUCO SE POINT OF CARE performing lab see note PO - [facility] [address] [place] [address] Not Available [address] , [place], [address], 12/10/2023 10:39:23 12/12/19 24 12/12/2023 GLUCO SE POINT OF CARE note See Note Order ing Provi bobby: Adis de león MD Not Available [address], [place], [address], 12/12/2023 10:56:55 12/12/19 24 12/12/2023 GLUCO SE POINT OF CARE glucose point of care 94 mg/dL 70-99 normal Not Available [address], [place], [address], 12/12/2023 10:56:55 12/12/19 24 12/12/2023 GLUCO SE POINT OF CARE performing lab see note [facility] - [facility] [address] [place] [address] Not Available [address], [place], [address], 12/12/2023 10:56:55 12/19/19 24 12/19/2023 GLUCO SE POINT OF CARE note See Note Order ing Provi bobby: Adis de león MD Not Available [address], [place], [address], 12/19/2023 10:44:59 12/19/19 24 12/19/2023 GLUCO SE POINT OF CARE glucose point of care 89 mg/dL 70-99 normal Not Available [address], [place], [address], 12/19/2023 10:44:59 12/19/19 24 12/19/2023 GLUCO SE POINT OF CARE performing lab see note PO - [facility]PO [address] [place] [address] Not Available [address] , [place], [address], 12/19/2023 10:44:59 12/22/19 24 12/22/2023 GLUCO SE POINT OF CARE note See Note Order ing Provi bobby: Adis de león MD Not Available [address] , [place], [address], 12/22/2023 10:47:10 12/22/19 24 12/22/2023 GLUCO SE POINT OF CARE glucose point of care 105 mg/dL 70-99 high Not Available [address] , [place], [address], 12/22/2023 10:47:10 12/22/19 24 12/22/2023 GLUCO SE POINT OF CARE performing lab see note PO - [place] [address] [place] [address] Not Available [address] , [place], [address], 12/22/2023 10:47:10 12/24/19 24 12/24/2023 GLUCO SE POINT OF CARE note See Note Order ing Provi bobby: Adis de león MD Not Available [address] , [place], [address], 12/24/2023 10:51:13 12/24/19 24 12/24/2023 GLUCO SE POINT OF CARE glucose point of care 108 mg/dL 70-99 high Not Available [address] , [place], [address], 12/24/2023 10:51:13 12/24/19 24 12/24/2023 GLUCO SE POINT OF CARE performing lab see note PO - [address] [place] [address] Not Available [address] , [place], [address], 12/24/2023 10:51:13 01/14/20 24 01/14/2024 CBC W/AUT O DIFFE RENTI AL note See Note Order ing Provi bobby: Adis de león MD Not Available [address] , [place], [address], 01/14/2024 10:15:33 01/14/20 24 01/14/2024 CBC W/AUT O DIFFE RENTI AL white blood cell 7.1 10e3/ uL 4.5-13 .0 normal Not Available [address] , [place], [address], 01/14/2024 10:15:33 01/14/20 24 01/14/2024 CBC W/AUT O DIFFE RENTI AL red blood cell 4.79 10e6/ uL 4.10-5 .70 normal Not Available [address], [place], [address], 01/14/2024 10:15:33 01/14/20 24 01/14/2024 CBC W/AUT O DIFFE RENTI AL hemoglobin 14.5 g/dL 12.0-1 6.9 normal Not Available [address], [place], [address], 01/14/2024 10:15:33 01/14/20 24 01/14/2024 CBC W/AUT O DIFFE RENTI AL hematocrit 43.2 % 36.0-4 9.0 normal Not Available [address], [place], [address], 01/14/2024 10:15:33 01/14/20 24 01/14/2024 CBC W/AUT O DIFFE RENTI AL mean cell volume 90 fL 78.0-9 8.0 normal Not Available [address], [place], [address], 01/14/2024 10:15:33 01/14/20 24 01/14/2024 CBC W/AUT O DIFFE RENTI AL mean cell HGB 30.3 pg 25.0-3 5.0 normal Not Available [address] , [place], [address], 01/14/2024 10:15:33 01/14/20 24 01/14/2024 CBC W/AUT O DIFFE RENTI AL mean cell HGB concentratio n 33.6 g/dL 31.0-3 6.0 normal Not Available [address], [place], [address], 01/14/2024 10:15:33 01/14/20 24 01/14/2024 CBC W/AUT O DIFFE RENTI AL red cell distribution width 15.3 % 11.0-1 5.0 high Not Available [address], [place], [address], 01/14/2024 10:15:33 01/14/20 24 01/14/2024 CBC W/AUT O DIFFE RENTI AL platelet count 170 10e3/ uL 150-40 0 normal Not Available [address], [place], [address], 01/14/2024 10:15:33 01/14/20 24 01/14/2024 CBC W/AUT O DIFFE RENTI AL immature granulocyte % 0 0-1 normal Not Available [address], [place], [address], 01/14/2024 10:15:33 01/14/20 24 01/14/2024 CBC W/AUT O DIFFE RENTI AL neutrophil % 68 % 35-75 normal Not Available [address], [place], [address], 01/14/2024 10:15:33 01/14/20 24 01/14/2024 CBC W/AUT O DIFFE RENTI AL lymphocyte % 22 % 10-50 normal Not Available [address], [place], [address], 01/14/2024 10:15:33 01/14/20 24 01/14/2024 CBC W/AUT O DIFFE RENTI AL monocyte % 8 % 0-15 normal Not Available [address], [place], [address], 01/14/2024 10:15:33 01/14/20 24 01/14/2024 CBC W/AUT O DIFFE RENTI AL eosinophil % 2 % 0-5 normal Not Available [address], [place], [address], 01/14/2024 10:15:33 01/14/20 24 01/14/2024 CBC W/AUT O DIFFE RENTI AL basophil % 0 % 0-5 normal Not Available [address], [place], [address], 01/14/2024 10:15:33 01/14/20 24 01/14/2024 CBC W/AUT O DIFFE RENTI AL immature granulocyte # 0.02 x1000 /uL 0-0.05 normal Not Available [address], [place], [address], 01/14/2024 10:15:33 01/14/20 24 01/14/2024 CBC W/AUT O DIFFE RENTI AL neutrophil # 4.79 x1000 /uL 1.50-8 .00 normal Not Available [address], [place], [address], 01/14/2024 10:15:33 01/14/20 24 01/14/2024 CBC W/AUT O DIFFE RENTI AL lymphocyte # 1.57 x1000 /uL 1.20-5 .20 normal Not Available [address], [place], [address], 01/14/2024 10:15:33 01/14/20 24 01/14/2024 CBC W/AUT O DIFFE RENTI AL monocyte # 0.58 x1000 /uL 0.30-0 .90 normal Not Available [address], [place], [address], 01/14/2024 10:15:33 01/14/20 24 01/14/2024 CBC W/AUT O DIFFE RENTI AL eosinophil # 0.11 x1000 /uL 0.00-0 .50 normal Not Available [address], [place], [address], 01/14/2024 10:15:33 01/14/20 24 01/14/2024 CBC W/AUT O DIFFE RENTI AL basophil # 0.03 x1000 /uL 0.00-0 .30 normal Not Available [address], [place], [address], 01/14/2024 10:15:33 01/14/20 24 01/14/2024 CBC W/AUT O DIFFE RENTI AL NRBC automated 0.0 /100_ WBC Not Available [address], [place], [address], 01/14/2024 10:15:33 01/14/20 24 01/14/2024 CBC W/AUT O DIFFE RENTI AL performing lab see note - [facility] [place] [address] [facility] [address] Not Available [address] , [place], [address], 01/14/2024 10:15:33 01/14/20 24 01/14/2024 COMP METAB OLIC PANEL note SEE NOTE Order ing Provi bobby: Adis de león MD Not Available [address] , [place], [address], 01/14/2024 10:42:47 01/14/20 24 01/14/2024 COMP METAB OLIC PANEL sodium 139 mmol/ L 136-14 5 normal Not Available [address], [place], [address], 01/14/2024 10:42:47 01/14/20 24 01/14/2024 COMP METAB OLIC PANEL potassium 4.5 mmol/ L 3.5-5. 1 normal Not Available [address], [place], [address], 01/14/2024 10:42:47 01/14/20 24 01/14/2024 COMP METAB OLIC PANEL chloride 98 mmol/ L 98-107 normal Not Available [address], [place], [address], 01/14/2024 10:42:47 01/14/20 24 01/14/2024 COMP METAB OLIC PANEL carbon dioxide 33 mmol/ L 24-33 normal Not Available [address], [place], [address], 01/14/2024 10:42:47 01/14/20 24 01/14/2024 COMP METAB OLIC PANEL anion gap 12.5 mmol/ L 10-20 normal Not Available [address], [place], [address], 01/14/2024 10:42:47 01/14/20 24 01/14/2024 COMP METAB OLIC PANEL glucose 101 mg/dL 70-99 high Not Available [address] [place], [address], 01/14/2024 10:42:47 01/14/20 24 01/14/2024 COMP METAB OLIC PANEL blood urea nitrogen 21 mg/dL 7-18 high Not Available [address] [place], [address], 01/14/2024 10:42:47 01/14/20 24 01/14/2024 COMP METAB OLIC PANEL creatinine 1.33 mg/dL 0.70-1 .30 high Not Available [address] [place], [address], 01/14/2024 10:42:47 01/14/20 24 01/14/2024 COMP METAB OLIC PANEL GFR (estimated) 56 mL/mi n >60 low [IM TANNER NT]: The 2020 CKD-E PI equat ion is now the recom gee d stand allan. This versi on does not inclu de race, as do the 2008 and 2011 CKD-E PI creat inine and creat inine -cyst atin C equat ions. Celeste e note that the eGFR now repor [...] to a curre nt value , a 2008 CKD-E PI calcu lator is easil y seamona hable on the inter net. Calcu lated [...] care of your patie nt. Not Available [address] , [place], [address], 01/14/2024 10:42:47 01/14/20 24 01/14/2024 COMP METAB OLIC PANEL BUN/creatini ne ratio 15 12-20 normal Not Available [address] , [place], [address], 01/14/2024 10:42:47 01/14/20 24 01/14/2024 COMP METAB OLIC PANEL total protein 7.8 g/dL 6.4-8. 2 normal Not Available [address], [place], [address], 01/14/2024 10:42:47 01/14/20 24 01/14/2024 COMP METAB OLIC PANEL albumin 4.3 g/dL 3.4-5. 0 normal Not Available [address], [place], [address], 01/14/2024 10:42:47 01/14/20 24 01/14/2024 COMP METAB OLIC PANEL globulin 3.5 g/dL 1.5-4. 0 normal Not Available [address], [place], [address], 01/14/2024 10:42:47 01/14/20 24 01/14/2024 COMP METAB OLIC PANEL albumin/glob ulin ratio 1.2 0.5-2. 0 normal Not Available [address] , [place], [address], 01/14/2024 10:42:47 01/14/20 24 01/14/2024 COMP METAB OLIC PANEL calcium 9.4 mg/dL 8.5-10 .1 normal Not Available [address] , [place], [address], 01/14/2024 10:42:47 01/14/20 24 01/14/2024 COMP METAB OLIC PANEL osmolality serum calculated 280 mOsm/ kg 272-28 8 normal Not Available [address] , [place], [address], 01/14/2024 10:42:47 01/14/20 24 01/14/2024 COMP METAB OLIC PANEL bilirubin total 1.0 mg/dL 0.2-1. 0 normal Use of this assay is not recom gee d for patie nts under going treat ment with Eltro mbopa g due to the poten tial for false ly eleva tio resul ts. Not Available [address] , [place], [address], 01/14/2024 10:42:47 01/14/20 24 01/14/2024 COMP METAB OLIC PANEL SGOT/AST 22 U/L 15-37 normal Not Available [address] , [place], [address], 01/14/2024 10:42:47 01/14/20 24 01/14/2024 COMP METAB OLIC PANEL SGPT/ALT 29 U/L 16-63 normal Not Available [address] , [place], [address], 01/14/2024 10:42:47 01/14/20 24 01/14/2024 COMP METAB OLIC PANEL alkaline phosphatase total 71 U/L 46-116 normal Not Available [address] , [place], [address], 01/14/2024 10:42:47 01/14/20 24 01/14/2024 COMP METAB OLIC PANEL performing lab SEE NOTE ML - [facility] [address] [facility] [address] Not Available [address] , [place], [address], 01/14/2024 10:42:47 01/14/20 24 01/14/2024 LIPID PANEL note SEE NOTE Order ing Provi bobby: Adis de león MD Not Available [address] , [place], [address], 01/14/2024 10:42:48 01/14/20 24 01/14/2024 LIPID PANEL triglyceride s 164 mg/dL < 150 high Natio nal Fay stero l Educa tion Progr am (NCEP ) Guide lines : Poonam l < 150 mg/dL Borde rline 150 - 199 mg/dL High 200 - 499 mg/dL Very High >or= 500 mg/dL Not Available [address] , [place], [address], 01/14/2024 10:42:48 01/14/20 24 01/14/2024 LIPID PANEL cholesterol 158 mg/dL < 200 normal Natio nal Fay stero l Educa tion Progr am (NCEP ) Guide lines : Timoteo able < 200 mg/dL Borde rline Risk 200 - 239 mg/dL High Risk >or= 240 mg/dL Not Available [address] , [place], [address], 01/14/2024 10:42:48 01/14/20 24 01/14/2024 LIPID PANEL HDL cholesterol 55 mg/dL > 60 low Natio nal Fay stero l Educa tion Progr am Adult Treat ment Panel III (NCEP -ATP III) Guide lines : < 40 mg/dl : Low HDL-C holes terol >or= 60 mg/dl : High HDL-C holes terol Not Available [address] , [place], [address], 01/14/2024 10:42:48 01/14/20 24 01/14/2024 LIPID PANEL LDL cholesterol 70 mg/dL < 100 normal Natio nal Fay stero l Educa tion Progr am (NCEP ) Guide lines : Optim al < 100 mg/dL Near/ Above Optim al 100 - 129 mg/dL Borde rline High 130 - 159 mg/dL High 160 - 189 mg/dL Very High >or= 190 mg/dL Not Available [address] , [place], [address], 01/14/2024 10:42:48 01/14/20 24 01/14/2024 LIPID PANEL performing lab SEE NOTE ML - [facility] [address] [facility] [id number] Not Available [address] , [place], [address], 01/14/2024 10:42:48 10/24/19 24 10/24/2023 - US soft tissu e mass neck [place] [facility] Ce Name: GWENDOLYN CARRASCO RAY [address] [facility] Phys: Thiago SHETH, [place] [address] : 1950 Age: 72 Sex: M Acct: [id number] Loc: CLAIRE PHONE #: Exam Date: 2023 Status : REG CLI FAX #: [phone] Rad# [id number] Unit# [id number] Admit Date: 2023 EXAMS: CPT CODE: [id number] US SOFT TISSUE MASS NECK [id number] CLINIC AL INFORM ATION: Palpab le left subman dibula r mass. COMPAR JULI: No compar juli availa ble. FINDIN GS: Target ed sonogr aphy perfor med by Lindsa y Francisco, RDMS Left subman dibula r [...] stephon. PAGE 1 Signed Report (FÉLIX NUED) [place] [facility] Ce Name: GWENDOLYN CARRASCO Loop Survey Phys: Thiago SHETH, [place] [address] : 1950 Age: 72 Sex: M Acct: [id number] Loc: PiaMONA PHONE #: Exam Date: 2023 Status : REG CLI FAX #: Rad# [phone] Unit# [id number] Admit Date: 2023 EXAMS: CPT CODE: [id number] US SOFT TISSUE MASS NECK 61917 Electr onical ly Signed by Xenia De León on 2023 at 1047 Report ed and signed by: NA De León M.D. CC: Chastity Ewing ce DIRECTOR OF CARDIAC CATH LAB; Adis Tavares MD Dictat ed Date/T moises: 2023 (1047) Techno logist : LINDSA Y FRANCISCO Transc ribed Date/T moises: 2023 (1047) Transc riptio nist: DR.HAR KORIN Trevino onic Signat ure Date/T moises: 2023 (1047) Printe d Date/T moises: 2023 (1050) BATCH NO: N/A PAGE 2 Signed Report CC'ed Logic: Orderi ng Provid er: THIAGO ARCEO Attend ing Provid er: THIAGO ARCEO Referr ing Provid er: THIAGO ARCEO Consul ting Provid er: AARON [address] [place] [address] , [place], [address], 10/27/2023 13:51:00 10/25/19 24 10/25/2023 - ECHO w/spe c/col or flow [facility] Name: GWENDOLYN ACRRASCO [address] [place] [address] Drive Phys: Thiago SHETH, [place] [address] : 1950 Age: 72 Sex: M Acct: [id number] Loc: CLAIRE PHONE #: [phone] Exam Date: 2023 Status : DEP CLI FAX #: Rad# [id number] Unit# [id number] Admit Date: 2023 EXAMS: CPT CODE: [id number] ECHO W/SPEC /COLOR FLOW [id number] Reason for study: Tejada ry artery diseas [...] by: ADIS TAVARES MD CC: Chastity rico DIRECTOR OF CARDIAC CATH LAB; Adis Tavares MD Dictat ed Date/T moises: 2023 (1255) [...] Provid er: AARON RICO APRN CHASTITY glover [address] , [place], [address], 10/27/2023 13:51:00 11/06/19 24 11/06/2023 elect rocfrance diogr am No observ ation record ed. ROSA ISELA [address], [place], [address], 11/06/2023 09:29:54 11/06/19 24 11/06/2023 elect rocar diogr am No observ ation record ed. ROSA ISELA [address], [place], [address], 11/06/2023 11:16:09 11/06/19 24 11/06/2023 cardi ac monit or No observ ation record ed. [email or web address] Not Available 14:48:19 10/21/19 25 elect rocar diogr am No observ ation record ed. ROSA ISELA [address], [place], [address], 10/20/2024 08:05:20 10/21/19 25 elect rocar diogr am No observ ation record ed. [email or web address] Not Available 2024 11:01:23 Result Notes None recorded. Problems Name Problem SNOMED Code Status Onset Date Resolution Date Notes Provider Name and Address Organization Details Recorded Time Diabetes mellitus 62866644 Active 2015 Diabetes mellitus Not Available [facility] 4 18:37:34 Hypertens dannielle disorder 94933687 Active 2015 Hypertens ion Not Available [facility] 4 18:37:34 Coronary arteriosc lerosis 03942670 Active 2015 Coronary artery disease Not Available [facility] 4 18:37:34 Hypertens dannielle heart disease without congestiv e heart failure 95978921 Active 2015 Hypertens dannielle heart disease without congestiv e heart failure Not Available [facility] 4 18:37:34 Obesity 835820414 Active 2015 Obesity Not Available [facility] 4 18:37:34 Disorder of carotid artery 584041068 Active 2017 Not Available [facility] 4 18:37:34 Mixed hyperlipi demia 663145854 Active 2015 Mixed hyperlipi demia Not Available [facility] 4 18:37:34 Diastolic dysfuncti on 9948239 Active 2022 Not Available [facility] 4 18:37:34 Electroca rdiogram abnormal 762053261 Active 2022 Not Available [facility] 4 18:37:34 Chest pain 50308491 Active 2022 Not Available [facility] 4 18:37:34 Palpitati ons 52882195 Active 2022 Not Available [facility] 4 18:37:34 Ventricul ar premature complex 634108469 Active 2022 Not Available [facility] 4 18:37:34 Angina pectoris 568809332 Active 2022 Not Available [facility] 4 18:37:34 Cardiovas cular stress test abnormal 078098626 Active 2022 Not Available [facility] 4 18:37:34 Essential hypertens ion 44484837 Active 2022 Not Available [facility] 4 18:37:34 Type 2 diabetes mellitus without complicat ion 618817776 Active 2022 Not Available [facility] 4 18:37:34 Pneumonia 048412937 Active Not Available [facility] 4 18:37:34 History of cardiac catheteri zation 64720807749 100 Active Not Available [facility] 4 18:37:34 Sepsis 63795047 Active Not Available [facility] 4 18:37:35 Edema of lower extremity 209754362 Active 2023 Not Available [facility] 4 18:37:34 Cardiomyo phuc 36727693 Active 2023 Adis Tavares MD [address] [place] [address],[address], [address] , [facility] & [place] 4 11:01:05 Paroxysma l atrial fibrillat ion 470892076 Active 2023 Adis Tavares MD [address] [place] [address],[place] [address], [place], [address] , [place] [facility] [place] [facility] [place] 11:01:23 Problem Notes None recorded. Procedures Surgical History Date Name Laterality Status Provider Name and Address Organization Details Recorded Time 023 CABG completed Mi Sanjeev [place] [facility] [place] [facility] [place] 07/18/2023 09:03:45 023 LEFT HEART CATHETERIZATION (SURG) completed Mi Sanjeev [place] [facility] [place] [facility] [place] 07/18/2023 09:03:12 008 Cardiac Catheterization completed [place] Sanjeev [place] [facility] [place] 12/09/2022 14:38:33 007 Cardiac Catheterization completed Mi Sanjeev [place] [facility] [place] [facility] [place] 12/09/2022 14:37:37 007 Cardiac Catheterization completed [place]jeev [place] [facility] [place] 12/09/2022 14:36:15 005 Cardiac Catheterization completed [place]jeev [place] [facility] [place] [facility] [place] 12/09/2022 14:35:35 004 Cardiac Catheterization completed Mi [place]jeev [place] [facility] [place] 12/09/2022 14:34:06 003 Cardiac Catheterization completed [place]jeev [place] [facility] 12/09/2022 14:33:37 003 Cardiac Catheterization completed Mi Sanjeev [place] [facility] 12/09/2022 14:32:38 thoracentesis completed Kelly [place]eri [place] 08/19/2023 13:10:11 Hernia Repair completed Kelly [place]ra [place] 08/19/2023 13:10:36 sinusotomy, multiple completed Kelly [place]ra [place] 08/19/2023 13:10:48 Cardiovascular Surgery completed Vicky Harman [place] [facility] [facility] [place] 11/06/2023 08:32:54 Imaging Results None recorded. Procedure Notes None recorded. Medical Equipment None Reported. Allergies Allergen ID Allergen Name Allergen Category Reaction Reaction Severity Criticality Documentation Date Start Date Code Code System Note Provider Name and Address Organization Details Recorded Time 2182 Penicilli n Not available Not available Not available Not available 04/24/2022 98819 RxNorm React ion: Unkno wn, sever ity: Unkno wn Not Available [facility] 22:21:56 Medications Name Sig Start Date [...] active SW Not Available Not Available Not Avarnie hernandez aspirin 325 mg tablet,elizabeth yed release Take [...] 2024 active Not Available Not Available Not Elie hernandez levofloxaci n 500 mg tablet TAKE 1 TABLET BY MOUTH ONCE A DAY. active Not Available Not Available No t Available albuterol sulfate HFA 90 mcg/actuati on [...] 20 mg tablet TAKE 1 TABLET DAILY 2024 active Not Available Not Available Not Avai lable Klor-Con M20 mEq tablet,exte nded release Take [...] Updated DateTime 4 167.64 cm 37.9 kg/m2 146132. 49 g 93 % 93 % 64 /min 110 mm[Hg] 78 mm[Hg] Tara Padilla [place] [facility] [place] [facility] [place] 4 10:51:10 Date Recorded Body height Body mass index (BMI) Body weight Oxygen saturation Oxygen saturation in Arterial blood by Pulse oximetry Heart rate Systolic blood pressure Diastolic blood pressure Provider Name and Address Organization Details Last Updated DateTime 5 167.64 cm 37 kg/m2 544536. 65 g 92 % 92 % 81 /min 112 mm[Hg] 70 mm[Hg] Vicky de león [place] [facility] & [place] 5 08:11:28 Date Recorded Body height Body mass index (BMI) Body weight Oxygen saturation Oxygen saturation in Arterial blood by Pulse oximetry Heart rate Systolic blood pressure Diastolic blood pressure Provider Name and Address Organization Details Last Updated DateTime 4 167.64 cm 37.9 kg/m2 978726. 21 g 97 % 97 % 68 /min 126 mm[Hg] 82 mm[Hg] Vicky Farley sarthak [place] [facility] & [place] 4 08:48:38 Date Recorded Body height Body mass index (BMI) Body weight Oxygen saturation Oxygen saturation in Arterial blood by Pulse oximetry Heart rate Systolic blood pressure Diastolic blood pressure Provider Name and Address Organization Details Last Updated DateTime 4 167.64 cm 37.6 kg/m2 183361. 02 g 94 % 94 % 72 /min 120 mm[Hg] 80 mm[Hg] Alexa Henry [place] [facility] [place] 4 09:05:28 Date Recorded Body height Body weight Oxygen saturation Oxygen saturation in Arterial blood by Pulse oximetry Heart rate Systolic blood pressure Diastolic blood pressure Provider Name and Address Organization Details Last Updated DateTime 4 167.64 cm 121432. 43 g 93 % 93 % 89 /min 144 mm[Hg] 78 mm[Hg] Vicky Farley sarthak [place] [facility] & [place] 4 08:21:05 Social History Question Answer Notes LastModified by Handpressions Details LastModified Time Tobacco Smoking Status Former Smoker Vicky Harman [place], [place] [facility] [place] [facility] [place] 12/11/2022 07:57:08 When Did You Quit Smoking? 16+yearssinc elastcigaret te [email or web address] Information not available 08/19/2023 How Many Years Have You Smoked Tobacco? 10 [email or web address] Information not available 06/23/2023 Sex: Unknown Functional Status Question Answer Note LastModified by Shoppable ion Details LastModified Time Do you use any illicit or recreational drugs? No [email or web address] Information not available 05/16/2022 What is your level of alcohol consumption? None [email or web address] Information not available 05/16/2022 Mental Status None recorded. Family History Relationship Description Onset Age of this Age Resolved Age Notes LastModified by Organization Details LastModified Time Father No current problems or disability [email or web address] Not available 0 05/16/2022 16:04:55 Mother No current problems or disability [email or web address] Not available 0 05/16/2022 16:04:55 Medical History Condition Response Diabetes Y Coronary Artery Disease Y Congestive Heart Failure (CHF) Y Hyperlipidemia Y Hypertension Y Past Encounters Encounter ID Performer Location Encounter Start Date Encounter Closed Date Diagnosis/Indication Diagnosis SNOMED-CT Code Diagnosis ICD10 Code Diagnosis Note [id number] JESUS DIGGS NP, S [address] RUIZ [address] [place] [id number] 6 05/17/2022 08:42:55 05/17/2022 09:48:30 Coronary arteriosclerosis 21778666 I25.10 Essential hypertension 38343911 I10 Type 2 francisco betes mellitus without complication 149510690 E11.9 Carotid ar zeny stenosis 18184056 I65.23 Hyperlipidemia 26939603 E78.5 Hypertensi ve heart disease 18052423 I11.9 Erectile dysfunction 860 243602 F52.21 [id number] Adis Tavares MD [address] RUIZ [address] [place] [id number] 6 12/11/2022 07:44:14 12/11/2022 08:14:24 Coronary arteriosclerosis 70210556 I25.10 Diabetes mellitus 072040 09 E11.9 Hypertensive disorder 38 411525 I10 Mixed hyperlipidemia 267 305619 E78.2 Diastolic dysfunction 35 54512 I51.9 [id number] Adis Tavares MD [address] RUIZ [address] [place] [address] 6 06/23/2023 14:37:54 06/23/2023 15:16:52 Coronary arteriosclerosis 38255439 I25.10 Diabetes mellitus 348681 09 E11.9 Hypertensive disorder 38 125344 I10 Mixed hyperlipidemia 267 666350 E78.2 Diastolic dysfunction 35 22751 I51.9 Electrocar diogram abnormal 361150489 R94.31 Chest pain 47996397 R07. 9 Palpitations 43857037 R0 0.2 Ventricula r premature complex 508743493 I49.3 [id number] Adis Tavares MD [address] RUIZ [address] [place] [id number] 6 07/08/2023 09:23:19 07/08/2023 10:34:00 Angina pectoris 880957273 I20.9 Cardiovasc ular stress test abnormal 617640591 R94.39 Coronary arteriosclerosis 80365141 I25.10 Mixed hyperlipidemia 267 424057 E78.2 Electrocar diogram abnormal 342875088 R94.31 Essential hypertension 75355624 I10 Diastolic dysfunction 35 95781 I51.9 Ventricula r premature complex 338484387 I49.3 Type 2 francisco betes mellitus without complication 153075157 E11.9 [id number] Pk Kwong MD [facility] [address] [place] [address] [address]UI[address] [place] [address] 8 08/19/2023 12:53:15 08/19/2023 13:32:09 Postoperative retention of urine 743158935 R33.8 Type 2 francisco betes mellitus 54945082 E11.9 Coronary arteriosclerosis 11342633 I25.10 Essential hypertension 06370080 I10 [id number] Adis Tavares MD [address] RUIZ [address] [place] [address] 6 09/03/2023 10:38:01 09/03/2023 11:09:15 Angina pectoris 921590528 I20.9 Edema of l ower extremity 866040302 R60.0 Coronary arteriosclerosis 88370019 I25.10 Diastolic dysfunction 35 57005 I51.9 Essential hypertension 74331403 I10 Mixed hyperlipidemia 267 322572 E78.2 Obesity 359783429 E66.9 Type 2 francisco betes mellitus without complication 038496159 E11.9 [id number] Adis Tavares MD [address] RUIZ [address] [place] [address] 6 10/08/2023 10:14:42 10/08/2023 11:02:27 Cardiomyopathy 34396314 I42.9 Coronary arteriosclerosis 63594826 I25.10 History of coronary artery bypass grafting 648590261 Z95.1 Paroxysmal atrial fibrillation 598494930 I48.0 Diastolic dysfunction 35 64533 I51.9 Electrocar diogram abnormal 445146534 R94.31 Essential hypertension 39139077 I10 [id number] Adis Tavares MD [address] RUIZ [address] [place] [address] 6 11/06/2023 08:39:59 11/06/2023 09:03:09 Cardiomyopathy 52456766 I42.9 Coronary arteriosclerosis 28860281 I25.10 Essential hypertension 53352162 I10 Diastolic dysfunction 35 47806 I51.9 Paroxysmal atrial fibrillation 971562657 I48.0 Type 2 francisco betes mellitus without complication 174474195 E11.9 Ventricula r premature complex 602162209 I49.3 [id number] Adis Tavares MD [address] RUIZ [address] [place] [address] 6 01/14/2024 08:39:46 01/14/2024 09:27:07 Mixed hyperlipidemia 283922745 E78.2 Cardiomyopathy 81749807 I42.9 Coronary arteriosclerosis 47020249 I25.10 Diastolic dysfunction 35 38420 I51.9 Paroxysmal atrial fibrillation 809875011 I48.0 Type 2 francisco betes mellitus without complication 045969830 E11.9 Ventricula r premature complex 682316936 I49.3 [id number] Adis Tavares MD [address] RUIZ [address] [place] [address] 6 04/15/2024 08:03:03 04/15/2024 08:26:17 Mixed hyperlipidemia 841398206 E78.2 Cardiomyopathy 77501956 I42.9 Coronary arteriosclerosis 14931842 I25.10 Diastolic dysfunction 35 68697 I51.9 Paroxysmal atrial fibrillation 846665402 I48.0 Type 2 francisco betes mellitus without complication 438933121 E11.9 Ventricula r premature complex 105872033 I49.3 [id number] Adis Tavares MD [address] RUIZ [address] [place], [place] [address] 6 10/20/2024 07:48:54 10/20/2024 08:16:12 Mixed hyperlipidemia 915157875 E78.2 Cardiomyopathy 84637045 I42.9 Coronary arteriosclerosis 81555942 I25.10 Diastolic dysfunction 35 57096 I51.9 Paroxysmal atrial fibrillation 016209035 I48.0 Type 2 francisco betes mellitus without complication 623880015 E11.9 Ventricula r premature complex 789002275 I49.3 Health Concerns Section Related Observation LastModified by Organization Detai ls LastModified Time None Recorded Concern Status LastModified by Organization Details LastModified Time None Recorded Advance Directives Directive None Recorded Payers Insurance Date Sequence Insurance Name Policy Number Policy Silverio Covered Member ID Silverio Member ID Guarantor Name 01/24/2025 1 [facility] (MEDICARE REPLACEMENT/A DVANTAGE - PPO) [id number] Angus Alcazar Aicha [id number] Angus Alcazar Aicha Notes Date Note Type Note Provider Name [...] edema orthopnea or PND Adis Tavares MD [address] [place] [address],[address], [place], [address], [facility] 10/09/2023 15:54:41 11/06/2023 text/html Patient has been doing very well. [place] through cardiac rehab. Here today to go over test results. He feels well. No palpitations or fluttering. No edema. No chest pain pressure or tightness Adis Tavares MD [address] [place] [address],[address], [place], [address], [facility] & [place] 11/06/2023 09:09:39 01/14/2024 text/html doing well. He i s done with cardiac rehabilitation. Still with some fatigue but getting along well and not having any issues. No edema. No chest pain pressure or tightness Adis Tavares MD [address] [place] [address],[address], [place], [address], [facility] & [place] 01/14/2024 16:48:02 04/15/2024 text/html doing very well. Here to go over blood work no chest pain pressure or tightness. No shortness of breath. He has been very active Adis Tavares MD [address] [place] [address],[address], [place], [address], [facility] & [place] 04/15/2024 13:49:58 10/20/2024 text/html Doing very well. No chest pain pressure or tightness. No shortness of breath. Blood pressure and heart rate have been under excellent control. Overall he feels well Adis Tavares MD [address] [place] [address] Drive,[address], [place], [address], [place] [facility] [place] 10/20/2024 09:12:11
--- OUTSIDE RECORDS SUMMARY | 2025-02-07 11:19 | XMS_ITS | Clinical Summary ---
Author Organization [employer] Address [address] [place] [address] Care Team Providers Care Solar Engineer Name Role Phone Chastity Altamirano APRN Primary Care Provider [phone] Ezequiel Das MD Unavailable Unavailable Jack Ramirez MD Unavailable [phone] Allergies Active Allergy Reactions Criticality Noted Date Comments Penicillin Swelling,Rash High 07/16/2023 Medications metFORMIN (GLUCOPHAGE) 500 MG tablet Take 1 tablet (500 mg total) by mouth 2 (two) times daily with breakfast and dinner. Active rosuvastatin (CRESTOR) 20 MG tablet Take 1 tablet (20 mg total) by mouth nightly. Active omega 8-sev-ulx-fish oil (Fish OiL) 100-160-1,000 mg Cap Take 1 capsule by mouth daily. Active cholecalciferol , vitamin D3, 25 mcg (1,000 unit) capsule Take 1 capsule (1,000 Units total) by mouth daily. Active vitamin E 1000 UNIT capsule Take 1 capsule (1,000 Units total) by mouth daily. Active cyanocobalamin (VITAMIN B-12) 1000 MCG tablet Take 1 tablet (1,000 mcg total) by mouth daily. Active clopidogreL (PLAVIX) 75 mg tablet Take 1 tablet (75 mg total) by mouth daily On hold for CABG. Active nitroglycerin (NITROSTAT) 0.[address] 1 tablet (0.4 mg total) under the tongue every 5 (five) minutes as needed for Chest pain Put 1 pill under tongue every 5min as needed for chest pain.No more than 3 doses in 15min.Call 911 if pain unrelieved 5min after 1st dose. Active amiodarone (PACERONE) 200 MG tablet Take 1 tablet (200 mg total) by mouth daily. Active aspirin 81 MG EC tablet Take 1 tablet (81 mg total) by mouth daily. Active metoprolol tartrate (LOPRESSOR) 25 MG tablet Take 1 tablet (25 mg total) by mouth 2 (two) times daily. Active furosemide (LASIX) 40 MG tablet Take 1 tablet (40 mg total) by mouth daily. 4 Active Klor-Con M20 20 mEq tablet Take 1 tablet (20 mEq total) by mouth daily. 4 Active Active Problems Problem Noted Date Diagnosed Date S/P CABG x 2 07/28/2023 CAD in [place] artery 07/16/2023 Coronary artery disease 07/16/2023 Recurrent pleural effusion DM2 (diabetes mellitus, type 2) Hypertension Chronic respiratory failure with hypoxia Family History Medical History Relation Name Comments Heart disease Father Pacemaker Stroke Father Other Mother in childbi rth age 42 Relation Name Status Comments Father Mother Social History Tobacco Use Types Packs/Day Years Used Date Smoking Tobacco: Former Cigarettes 1 8 1 5 1972 Passive Smoke Exposure: Past Smokeless Tobacco: Never Tobacco Cessation:Counseling Given: Not Answered Comments:Worked [employer] as child Alcohol Use Standard Drinks/Week Comments Never 0 (1 standard drink = 0.6 oz pur e alcohol) Humiliation, Afraid, Rape, and Kick questionnair e Answer Date Recorded Within the last year, have y ou been afraid of your partner or ex-partner? No 07/24/2023 Within the last year, have y ou been humiliated or emotionally abused in other ways by your partner or ex-partner? No Within the last year, have y ou been kicked, hit, slapped, or otherwise physically hurt by your partner or ex-partner? No 07/24/2023 Within the last year, have y ou been raped or forced to have any kind of sexual activity by your partner or ex-partner? No 07/24/2023 PHQ-2 Answer Date Recorded Patient Health Questionnaire-2 Score 0 07/24/2023 PRAPARE - Transportation Answer Date Re corded In the past 12 months, has l ack of transportation kept you from medical appointments or from getting medications? No 08/21/2023 Lack of Transportation (Non-Medical) Not on file 08/21/2023 Housing Stability Vital Sign Answer David e Recorded In the last 12 months, was t here a time when you were not able to pay the mortgage or rent on time? No 08/22/2023 In the last 12 months, how many places have you lived? 1 08/22/2023 In the last 12 months, was t here a time when you did not have a steady place to sleep or slept in a nursing home (including now)? No 08/22/2023 [facility] Intimate Partner Violence Answer Da te Recorded Within the last year, have y ou been afraid of your partner or ex-partner? No 07/24/2023 Within the last year, have y ou been humiliated or emotionally abused in other ways by your partner or ex-partner? No Within the last year, have y ou been kicked, hit, slapped, or otherwise physically hurt by your partner or ex-partner? No 07/24/2023 Within the last year, have y ou been raped or forced to have any kind of sexual activity by your partner or ex-partner? No 07/24/2023 Interpersonal Safety Answer Date Record ed Family or friends hurt you Not on file 08/27 Family or friends insult you Not on file 05/2024 Family or friends threaten you Not on file 0 08/27/2023 Family or friends scream or curse at you Not on file 08/27/2023 Housing Stability Answer Date Recorded Living situation today Not on file Living situation problems Not on file 2023 Food Insecurity Answer Date Recorded Food run out past 12 months Not on file 08/18 Food did not last past 12 months Not on file 08/27/2023 Employment Answer Date Recorded Help finding and keeping a job Not on file 0 08/27/2023 Family and Community Support Answer David e Recorded Help with Day to Day Activities Not on file 08/27/2023 Feeling Lonely or Isolated Not on file 08/27 Educational Attainment Answer Date Madhu rded Speak language other than [place] at home Not on file 08/27/2023 Want help with school or training Not on file 08/27/2023 Depression Answer Date Recorded PHQ-2 Risk Not on file 08/27/2023 Disabilities Answer Date Recorded Difficulty concentrating Not on file 024 Difficulty doing errands alone Not on file 0 08/27/2023 Substance Use Answer Date Recorded Used prescription meds for non-medical reasons N ot on file 08/27/2023 Used illegal drugs past 12 months Not on file 08/27/2023 Sex and Gender Information Value Date Recorded Sex Assigned at Not on file Legal Sex Male 2:18 PM CDT Gender Identity Not on file Sexual Orientation Not on file Last Filed Vital Signs Vital Sign Reading Time Taken Comments Blood Pressure 130/83 09/16/2023 2:02 PM EST Pulse 86 09/16/2023 2:02 PM EST Temperature 36.8 C (98.3 F) 08/24/2023 12:00 PM EST Respiratory Rate 16 08/24/2023 12:0 0 PM EST Oxygen Saturation 96% 09/16/2023 2:02 PM EST Inhaled Oxygen Concentration 40% 07/28/2023 4 :15 PM EST Weight 105.1 kg (231 lb 12.8 oz) 09/16/2023 2:02 PM EST Height 170.2 cm (5' 7 ) 09/16/2023 2:02 PM EST Body Mass Index 36.31 09/16/2023 2:02 PM EST Plan of Treatment Health Maintenance Due Date Last Done Comments Diabetic Kidney Health Evalu ation (KED) 1948 Diabetic Eye Exam 1958 Diabetic foot exam 1958 Depression Screening (12+) 1960 Hepatitis C Screening 1966 DTAP/TDAP/TD VACCINES (1 - Tdap) 12/21/1967 Shingles Vaccine (Zoster) (1 of 2) 1998 Pneumococcal 50+ years (2 of 2 - PCV) 02/12/2019 02/12/2018 Medicare Initial AWV G0438 08/19/2023 Respiratory Syncytial Virus (RSV) Adult or (1 - 1-dose 75+ series) 12/21/2023 Hemoglobin A1C 01/23/2024 07/24/2023 COVID-19 VACCINE (4 - 2023-2 5 season) 2024 07/28/2021, 11/08/2020, 10/11/2020 Falls Risk Screening 08/18/2024 Tobacco Cessation Counseling and Screening (12+) 09/16/2024 09/16/2023 Influenza Vaccine (Season Ended) 2025 07/07/2023, 06/27/2022, 06/25/2021, Additional history exists Medical Devices Implanted Type Area Drywall Sprayer Device Identifier Shelf Expiration Date Model / Serial / Lot Marker Diamond Rng Cor Byps 80213 - [id number] Implanted:Qty: 2 on 07/28/2023 by Jack Ramirez MD at [facility] N/A: Aorta MING MED PRDT 10/15/2025 [id number] / / [id number] Procedures Procedure Name Priority Date/Time Associated Diagnosis Comments HEMOGLOBIN A1C Routine 07/24/2023 9:48 AM EST Preop testing from Last 3 Months or Most Recently Relevant to Health Maintenance Results * Hemoglobin A1c (07/24/2023 9:48 AM EST) Hemoglobin A1C 6.4 % 07/24/2023 1:29 PM EST [facility] Comment: Hemoglobin A1C levels are related to mean glucose during the preceding 2-3 months. Less than 7% demonstrates glycemic control in diabetic patients. Hemoglobin AlC % Suggested Diagnosis > or = 6.5 Diabetic 5.7 - 6.4 Prediabetic <5.7 Non-diabetic eAVG Glucose 136.98 mg/dL 07/24/2023 1:29 PM EST [facility] Blood Venipuncture / Unknown 07/24/2023 9:48 AM EST 07/24/2023 10:00 AM EST us Jack Ramirez MD LAB BLOOD ORDERABLES Yoselin l Result [facility] [address] [phone] from Last 3 Months or Most Recently Relevant to Health Maintenance Insurance MEDICARE ADVANTAGE Advance Directives For more information, please contact: [phone] * Full Code (Latest Code Status on File) Date Activated Date Inactivated Comments 08/21/2023 4:15 AM 08/24/2023 2:05 PM -Attempt Resus citation if person has no pulse and is not breathing. -If no pulse or not breathing attempt CPR/CODE. -Call Rapid Response if patient is in distress. Care Teams Solar Engineer Relationship Specialty Start Date End Date Chastity Altamirano, PEST CONTROL TECHNICIAN [address] [place] [address] PCP - General Nurse Practitioner 07/16/23 Ezequiel Das MD [address] [place] [phone] Referring Physician Cardiology 07/24/23 Jack Ramirez MD [address] [facility] [address] [place] [address] Surgeon Cardiothoracic Surgery 08/07/23
--- OUTSIDE RECORDS SUMMARY | 2025-02-07 11:19 | XMS_ITS | Referral Summary ---
Author Organization [employer] Address [address] [place] [address] Care Team Providers Care Dean Of Admissions Name Role Phone Chastity Altamirano APRN Primary Care Provider [phone] Ezequiel Das MD Unavailable Unavailable Jack Ramirez MD Unavailable [phone] Allergies Active Allergy Reactions Criticality Noted Date Comments Penicillin Swelling,Rash High 07/16/2023 Medications metFORMIN (GLUCOPHAGE) 500 MG tablet Take 1 tablet (500 mg total) by mouth 2 (two) times daily with breakfast and dinner. Active rosuvastatin (CRESTOR) 20 MG tablet Take 1 tablet (20 mg total) by mouth nightly. Active omega 9-dfk-emg-fish oil (Fish OiL) 100-160-1,000 mg Cap Take [...] S/P CABG x 2 07/28/2023 CAD in [place] artery 07/16/2023 Coronary artery disease 07/16/2023 Recurrent pleural effusion DM2 (diabetes mellitus, type 2) Hypertension Chronic respiratory failure with hypoxia Social History Tobacco Use Types Packs/Day Years Used Date Smoking Tobacco: Former Cigarettes 1 8 1 5 - 1972 Passive Smoke Exposure: Past Smokeless Tobacco: Never Tobacco Cessation:Counseling Given: Not Answered Comments:Worked [employer] as child Alcohol Use Standard Drinks/Week Comments [...] place to sleep or slept in a fdc (including now)? No 08/22/2023 CHI Intimate Partner [...] Date Madhu rded Speak language other than [place] at home Not on file 08/27/2023 Want [...] 09/16/2023 2:02 PM EST Plan of Treatment Not on file Medical Devices Implanted Type Area Medical Technologist Prn Device Identifier Shelf Expiration Date Model / Serial / Lot Marker Grft Rng Cor Byps 47424 - [id number] Implanted:Qty: 2 on 07/28/2023 by Jack Ramirez MD at [facility] N/A: Aorta MING MED PRDT 10/15/2025 [id number] / / [id number] Procedures Procedure Name Priority Date/Time Associated Diagnosis Comments HEMOGLOBIN A1C Routine 07/24/2023 9:48 AM EST Preop testing from Last 3 Months or Most Recently Relevant to Health Maintenance Results * Hemoglobin A1c (07/24/2023 9:48 AM EST) Hemoglobin A1C 6.4 % 07/24/2023 1:[address] [facility] [place] Comment: Hemoglobin A1C levels are related to mean glucose during the preceding 2-3 months. Less than 7% demonstrates glycemic control in diabetic patients. Hemoglobin AlC % Suggested Diagnosis > or = 6.5 Diabetic 5.7 - 6.4 Prediabetic <5.7 Non-diabetic eAVG Glucose 136.98 mg/dL 07/24/2023 1:[address] [facility] [place] Blood Venipuncture / Unknown 07/24/2023 9:48 AM EST 07/24/2023 10:00 AM EST us Jack Ramirez MD LAB BLOOD ORDERABLES Yoselin l Result [facility] [place] [address] [phone] from Last 3 Months or Most Recently Relevant to Health Maintenance Insurance MEDICARE ADVANTAGE Advance Directives For more information, please contact: [phone] * Full Code (Latest Code Status on File) Date Activated Date Inactivated Comments 08/21/2023 4:15 AM 08/24/2023 2:05 PM -Attempt Resus citation if person has no pulse and is not breathing. -If no pulse or not breathing attempt CPR/CODE. -Call Rapid Response if patient is in distress. Care Teams Dean Of Admissions Relationship Specialty Start Date End Date Chastity Altamirano, [employer] [address] [address] PCP - General Nurse Practitioner 07/16/23 Ezequiel Das MD [address] [place] [phone] Referring Physician Cardiology 07/24/23 Jack Ramirez MD [address] [facility] [place] [address] Surgeon Cardiothoracic Surgery 08/07/23
[2025-02-07] MEDS: BARIUM SULFATE(LIQUID E-Z-PAQUE);355ML BOTTLE 355 ML PO (11:36)
--- NOTE | 2025-02-07 11:39 | HMH.SLMBS2 ---
Speech & Language Evaluation Speech/Lang Modified Barium Swallow Start: 02/07/25 11:31 Freq: once Status: Complete Protocol: Document 02/07/25 11:31 YUE (Rec: 02/07/25 11:39 [id number] Evaluation Information [employer] [facility] Evaluation Information Date of Evaluation: 02/07/25 Time of Evaluation: 11:00 Evaluation Type Initial Certification Reason for Referral aspiration pna per MD order Does Patient Qualify No for Service Qualify/Failure Based on clinical observations made throughout MBSS, Comment mastication and manipulation of bolus and swallowing appear to be WFL. With adherence to aspiration precautions/compensatory measures no further skilled speech therapy services are warranted at this time. MBS Recommendations Diet Dietary Regular,Thin Liquids Recommendations SL Swallow Standard Aspiration Prec.,Reflux precautions Guidelines Treatment/Strategies Strategy/Precaution Sitting Upright (90 deg),Double Swallow,Small Bites and Recommended Sips,Alternate Liquids/Solids [employer] AD[employer]ATE Patient History Section [employer] Patient History Primary Medical Pt is a 74 yo male presenting at [facility] for a MBSS History following referral from his PCP after having pna. Pt reports no concerns for dysphagia. Does Patient have No Reflux or GERD? Does Patient Operating Room Rn Coughing or Choking Episodes? Does Patient Avoid No Certain Food Textures/ Consistencies? Does Patient Utilize No Compensatory Strategies During Meals? Has Patient No Experienced Significant Weight Loss? Does Pt have Hx of No Recurrent Pneumonias or Respiratory Infections? Has Patient Noticed No Change in Vocal Quality? [employer]OCATE Interview/Questionnaires Patient Interview and Questionnaires Questionnaires No questionnaires were given to pt, he expressed he was Comment confused as to why he was having a swallow study completed as he does not have difficulty eating or drinking per pt report. Mod Barium Swallow Study Patient Orientation Patient Orientation Person,Place,Time,Situation Oral Expression No Impairment Ability Ability to Follow Good Directions Is Patient able to Yes Perform Volitional Throat Clear? Is Patient able to Yes Perform Volitional Cough? Is Patient able to Yes Manage Secretions Independently? Mod Barium Swallow Set Up Radiologist Srikanth Cueto Patient Presentation Awake,Alert,Appropriate,Follows Commands : Bolus Consistencies Thin Liquids,Pudding,Puree,Mechanical Soft,Regular,Pill Trialed: (Barium Tablet) MBSS Observations Consistency & Strategy Trial Regular Penetration/ 1 Aspiration Scale PAS Amount Neither Pharyngeal Residual 0-9% Regular Half Bolus Penetration/ 1 Aspiration Scale PAS Amount Neither Pharyngeal Residual 0-9% Mechanical Soft Penetration/ 1 Aspiration Scale PAS Amount Neither Pharyngeal Residual 0-9% Mechanical Soft Half Bolus Penetration/ 1 Aspiration Scale PAS Amount Neither Pharyngeal Residual 0-9% Puree Full Spoon Penetration/ 1 Aspiration Scale PAS Amount Neither Pharyngeal Residual 0-9% Puree Half Spoon Penetration/ 1 Aspiration Scale PAS Amount Neither Pharyngeal Residual 0-9% Pudding Full Spoon Penetration/ 1 Aspiration Scale PAS Amount Neither Pharyngeal Residual 0-9% Pudding Half Spoon Penetration/ 1 Aspiration Scale PAS Amount Neither Pharyngeal Residual 0-9% Thin Subsequent Sips from Straw Penetration/ 1 Aspiration Scale PAS Amount Neither Pharyngeal Residual 0-9% Thin Straw Sip Penetration/ 1 Aspiration Scale PAS Amount Neither Pharyngeal Residual 0-9% Thin Subsequent Sips from Cup Penetration/ 1 Aspiration Scale PAS Amount Neither Pharyngeal Residual 0-9% Thin Open Cup Sip Penetration/ 1 Aspiration Scale PAS Amount Neither Pharyngeal Residual 0-9% Mod Barium Swallow Impressions Oral Phase Summary & Impressions Oral Phase: Minimal Impairment Impression Oral Phase: Labial No Impairment (WFL) Closure Oral Phase: Bolus No Impairment (WFL) Formation Pooling L/ R Oral Phase: Bolus No Impairment (WFL) Formation Under Tongue Oral Phase: Bolus No Impairment (WFL) Formation Scattered Loss Oral Phase: No Impairment (WFL) Mastication Rotary Chew Oral Phase: No Impairment (WFL) Mastication Munching Oral Phase: No Impairment (WFL) Mastication Lateralization Oral Phase: Lingual Minimal Impairment Movement Oral Phase: Residue Minimal Impairment Clearing Oral Phase: Other Large bolus size when drinking from straw. Able to Observations clear with trace pen that was cleared independently w/o need of cue. Pharyngeal Phase Summary & Impressions Pharyngeal Phase: Minimal Impairment Impression Pharyngeal Phase: A/ Minimal Impairment P Lingual Propulsion Spills Pharyngeal Phase: No Impairment (WFL) Swallow Response Delay Pharyngeal Phase: Minimal Impairment Base of Tongue Pharyngeal Phase: Minimal Impairment Epiglottic Coverage Pharyngeal Phase: Minimal Impairment Laryngeal Elevation Pharyngeal Phase: Minimal Impairment Vallecular Retention Clearing Pharyngeal Phase: No Impairment (WFL) Pharyngeal Wall Residue Clearing Pharyngeal Phase: No Impairment (WFL) Piriform Sinus Retention Pharyngeal Phase: Vallecular residue noted on solids 2' A/P spills and Other Observations residual on BOT, cleared with double swallow. No overt s/sxs of aspiration were noted throughout MBSS. LAY HE[employer] ADVOCATE MBSS Goals MBS Long-Term Goals Patient will utilize Double Swallow,Alternate Bites & Sips,Sitting Upright, compensatory Small Bites & Sips strategies with PO intake in order to meet nutrition and hydration needs for daily meals without overt signs/symptoms of aspiration. The patient will Regular,Thin Liquids tolerate the least restrictive diet with a safe/ efficient swallow to maintain adequate nutrition and hydration. Education Instructions Discussed results of MBSS, diet recommendations, provided aspiration risks/precautions, and compensatory strategies to pt who expressed understanding. Patient/Caregiver Able to recall/restate Able to Recall Information Reinforcement needed No PHYSICIAN CERTIFICATION: I certify the specified therapy services for Angus Alcazar Holcomb are required, authorized, and reviewed every 30 days.
== END 2025-02-07 23:59 | disposition home or self-care (01) ==
LOC: RAD 10:47
PROVIDERS: PCP Nurse Practitioner Family; Visit Provider Nurse Practitioner Family
DX: J69.0 Pneumonitis due to inhalation of food and vomit (principal)
CPT/HCPCS: 74230; 92611

== ENCOUNTER 2025-02-16 08:55 | Day surgery (SDC) | payer MEDICARE, SELFPAY ==
[2025-02-15 10:04] VITALS: BMI 34.8
[2025-02-16 10:01] VITALS: BP 128/64; PULSE 83; RESP 20; TEMP 36.8; O2SAT 95
[2025-02-16 10:10] LABS: POC Glucose,Bedside 102 (70-110)
--- NOTE | 2025-02-16 10:49 | EXP.ANES.CKL ---
[facility] Disclaimer: The information contained in this section may have been updated after the patient was seen, as this information can be updated by other users. Medical History (Updated 02/15/25 @ 10:03 by Marisa Oconnor RN) Pneumonia Lesion of vocal cord Surgical History (Updated 02/15/25 @ 10:03 by Marisa Oconnor RN) H/O heart artery stent History of open heart surgery No significant past surgical history Family History (Updated 02/15/25 @ 10:00 by Marisa Oconnor RN) Other No significant family history Social History (Updated 02/15/25 @ 10:00 by Marisa Oconnor RN) Smoking Status: Never smoker second hand exposure: No alcohol intake: never substance use type: denies use current occupational status: retired Travel in the last 8 weeks?: None household members: spouse housing: house current occupational exposures/hazards: No caffeine: No Have you lived/traveled outside US in past 30 days?: No Contact w/someone who lives/traveled outside US past 30 days?: No Exposure to someone with infectious disease in past 14 days?: No Do you have a fever (greater than 100.4 F or 38 C)?: No Have you tested positive for COVID-19?: No Exposed to someone with COVID-19 in past 14 days?: No Do you have a sore throat?: No Do you have a cough?: No Do you have any weakness?: No Do you have any diarrhea?: No Are you experiencing any unusual bleeding?: No Do you have any muscle aches/pain?: No Do you have any abdominal pain?: No Are you experiencing loss of taste or smell?: No [facility] Anesthesia Checklist Patient Identification Patient Identification: Arm Band Structural Data Admitted From: Home Planned Operative Procedure/s: Colonoscopy Consent for Planned Operative Procedure(s) Verified: Yes Verified Documents: Surgical Consent and History and Physical NPO Status Verified Time NPO: 00:00 Additional verifications Anesthesia Reactions: No Airway Assessment Mallampati Score:: Class II C-Spine Mobility Assessed: Yes TMJ Mobility Assessed: Yes Dentition: Edentulous Neurological Assessment Level of Consciousness: Awake, Alert and Appropriate Anesthesia Plan Anesthesia Risk discussed: Yes Anesthesia Plan: Verified ASA Class: III Anesthesia Type: MAC
--- NOTE | 2025-02-16 11:07 | EXP.HP ---
History of Present Illness *Admission Date: 02/16/25 *Reason for visit:: Personal history of adenomatous colon polyps *History of present illness: Mr. Holcomb is a 74-year-old gentleman who is here for follow-up surveillance colonoscopy secondary to a personal history of adenomatous colon polyps. The patient has had multiple adenomatous colon polyps removed on past colonoscopies and his last colonoscopy in July 2020 revealed 5 polyps (tubular adenomas x 5) which were removed. He has had more than 20 adenomatous colon polyps lifetime. The examination is deemed medically necessary for surveillance colonoscopy. The patient has been seen, interviewed and examined prior to the procedure by both myself and the anesthesia provider. [facility] Disclaimer: The information contained in this section may have been updated after the patient was seen, as this information can be updated by other users. Medical History (Updated 02/16/25 @ 11:09 by Sudhir Hunter II, MD) Pneumonia Lesion of vocal cord Surgical History (Updated 02/15/25 @ 10:03 by Marisa Oconnor RN) H/O heart artery stent History of open heart surgery No significant past surgical history Family History (Updated 02/15/25 @ 10:00 by Marisa Oconnor RN) Other No significant family history Social History (Updated 02/15/25 @ 10:00 by Marisa Oconnor RN) Smoking Status: Never smoker second hand exposure: No alcohol intake: never substance use type: denies use current occupational status: retired Travel in the last 8 weeks?: None household members: spouse housing: house current occupational exposures/hazards: No caffeine: No Have you lived/traveled outside [place] in past 30 days?: No Contact w/someone who lives/traveled outside [place] past 30 days?: No Exposure to someone with infectious disease in past 14 days?: No Do you have a fever (greater than 100.4 F or 38 C)?: No Have you tested positive for COVID-19?: No Exposed to someone with COVID-19 in past 14 days?: No Do you have a sore throat?: No Do you have a cough?: No Do you have any weakness?: No Do you have any diarrhea?: No Are you experiencing any unusual bleeding?: No Do you have any muscle aches/pain?: No Do you have any abdominal pain?: No Are you experiencing loss of taste or smell?: No Other Medical History Have you received the Flu Vaccine for this season: Yes Have you received the Pneumonia Vaccine: Yes Review of Systems Review of Systems Review of systems (narrative): Negative *Cardiovascular Comments: Negative *Gastrointestinal Comments: Negative *Genitourinary Comments: Negative *Musculoskeletal Comments: Negative *Neurologic Comments: Negative Meds Home Medications and Allergies Home Medications ?Medication ?Instructions ?Recorded ?Confirmed ?Type aspirin 81 mg tablet,delayed 81 mg PO DAILY prevent 04/06/18 02/15/25 History release (Aspir-) clopidogrel 75 mg tablet 75 mg PO DAILY stint in heart 04/06/18 02/15/25 History rosuvastatin 20 mg tablet (Crestor) 20 mg PO DAILY Cholesterol 04/06/18 02/15/25 History calcium polycarbophil 625 mg tablet 625 mg PO DAILY Supplement 07/17/20 02/15/25 History omega 3-gvs-kgt-fish oil 500 mg 1 each PO DAILY Supplement 07/17/20 02/15/25 History (200mg-300mg)-1,000 mg capsule vit E 15 unit-B1 15 mg-B6 12.5 1 each PO DAILY Supplement 07/17/20 02/15/25 History mg-folic acid [id number] capsule amiodarone 200 mg tablet 100 mg PO DAILY 03/10/24 02/15/25 History furosemide 40 mg tablet 40 mg PO DAILY 03/10/24 02/15/25 History metformin 500 mg tablet 500 mg PO BID Diabetes 03/10/24 02/15/25 History metoprolol succinate 25 mg 25 mg PO DAILY 03/10/24 02/15/25 History tablet,extended release 24 hr nitroglycerin 0.4 mg sublingual 0.4 mg sublingual Q5-15M PRN Chest 03/10/24 02/15/25 History tablet Pain potassium chloride 20 mEq 20 meq PO ONCE 03/10/24 02/15/25 History tablet,extended release(part/cryst) (Klor-Con M) sodium,potassium,mag sulfates 17.5 See Rx Instructions PO .COMPLEX 02/04/25 Rx gram-3.13 gram-1.6 gram oral soln #354 mL (Suprep Bowel Prep Kit) melatonin 10 mg tablet 20 mg PO HS PRN Sleep 02/15/25 02/15/25 History New Prescriptions to Start Prescriptions: Allergies Allergy/AdvReac Type Severity Reaction Status Date / Time Penicillins Allergy Intermediate SWELLING Verified 03/10/24 14:45 AT INJECTION SITE-NOT HAD SINCE CHILDHOOD Exam Data for Last 24 hours Vital signs and Labs for Last 24 Hours: Temp Pulse Resp BP Pulse Ox O2 Del Method 98.3 F 83 20 128/64 95 Room Air 02/16/25 10:01 02/16/25 10:01 02/16/25 10:01 02/16/25 10:01 02/16/25 10:01 02/16/25 10:01 Laboratory Results - last 24 hr 02/16/25 09:56: POC Glucose 102 I & O for Last 24 hours: Intake & Output 02/13/25 02/14/25 02/15/25 02/16/25 23:59 23:59 23:59 23:59 Weight 229 lb *Routine HEENT Exam Head: Present normocephalic Eye: Present EOMI and PERRL ENT: Present mucous membranes moist *Routine Neck Exam Neck: Present supple *Routine Respiratory Exam Respiratory: Present CTA bilaterally *Routine Cardiovascular Exam Cardiovascular: Present RRR *Routine Abdominal Exam Abdominal: Present soft and normoactive bowel sounds; Absent tenderness *Routine Rectal Exam Rectal:: deferred *Routine Genitalia Exam Genitalia:: deferred *Routine Extremities Exam Extremities: Absent cyanosis, clubbing or edema *Routine Skin Exam Skin: Present warm; Absent rash *Routine Neurological Exam Neurological: Present alert and oriented X3 Assessment and Plan *Assessment and plan (1) Personal history of adenomatous and serrated colon polyps: Status: Acute Category: Medical Code(s): Z86.0101 - Personal history of adenomatous and serrated colon polyps Plan A/P: 1. Personal history of adenomatous colon polyps is the preprocedural diagnosis. He has had more than 20 adenomatous colon polyps removed in his lifetime. The patient will be anesthetized/sedated using MAC sedation. The patient has been seen and examined. Cardiac and lung assessment prior to the examination is stable. Proceed with planned surveillance colonoscopy.
--- NOTE | 2025-02-16 11:33 | P.PCN_ITS ---
[facility] Procedure Note Date: 02/16/25 Time: 11:34 Procedure Note:: Colonoscopy Procedure Report: Colonoscopy with cold snare polypectomy Endoscopist: Sudhir Hunter II, MD Referring physician: GIDEON Neal Date of Procedure: February 16, 2025 Equipment: Olympus 190 variable stiffness pediatric colonoscope Sedation: MAC sedation Indication: Mr. Holcomb is a 74-year-old gentleman with a history of multiple adenomatous colon polyps. He had a colonoscopy 12 years ago at which time rose yps were removed. His colonoscopy in March 2018 revealed 14 polyps (tubular adenomas x 14) which were removed. His last colonoscopy in July 2020 revealed 5 polyps (tubular adenomas x 5) which were removed. He reports no abdominal pain, weight loss, change in his bowel habits or rectal bleeding. He reports no family history of colon cancer. Procedure: Prior to the procedure, a history and physical exam was performed, and patient's medications and allergies were reviewed. The risks, benefits and alternatives of the sedation and procedure were discussed with the patient. All questions were answered and informed consent was obtained. The patient was brought to the procedure room. Patient identification and proposed procedure were verified by the physician and the nurse. The patient was placed in a left lateral decubitus position and the scope was passed under direct vision. Throughout the procedure, the patient's blood pressure, pulse, and oxygen saturations were monitored continuously. The colonoscopy was accomplished without difficulty. The patient tolerated the procedure well. Findings: On digital rectal examination there was normal rectal tone. There were no external hemorrhoids. The prostate was 2-3+, smooth, soft, symmetric without nodules. The colonoscope was introduced through the anal canal to the rectum and advanced to the cecum. The ileocecal valve and appendiceal orifice were identified. The scope was advanced a short distance into the ileum which appeared grossly normal. The scope was then withdrawn into the colon. There were 7 colon polyps (cecum x 4 (3, 4, 5 and 7 mm), ascending x 1 (5 mm), descending x 1 (4 mm) and sigmoid x 1 (3 mm)). These were all removed via cold snare polypectomy. The remaining cecum, ascending and transverse colon and mucosa were grossly normal. There were scattered diverticuli throughout the descending and sigmoid colon (LEFT colon). The rectum itself was normal. Upon retroflexion within the rectum there were grade 2 internal hemorrhoids. The preparation was excellent throughout with [place] Preparation Score of 9. The cecal time was 14 minutes. Impression: 1. Diminutive colonic polyps x 7 2. Left-sided diverticulosis 3. Grade 2 internal hemorrhoids Plan: I will follow-up the polyp histology and recommend repeat surveillance colonoscopy again in 3 years. Persons with more than 20 adenomatous polyps cumulatively over the lifetime (over several colonoscopies) are considered to be higher risk for potential colon cancer or a genetic colon cancer polyposis syndrome. It is recommended that persons with more than a cumulative of 20 adenomatous polyps over there lifetime should be evaluated with surveillance colonoscopy no less than every 3 years. This patient has had more than 20 adenomatous polyps removed over the course of your colonoscopies. Certainly surveillance will be based upon health comorbidities and desire to continue surveillance.
[2025-02-16 11:40] VITALS: BP 116/52; PULSE 69; RESP 17; TEMP 36.6; O2SAT 95
[2025-02-16 11:50] VITALS: BP 141/81; PULSE 78; RESP 17; O2SAT 97
[2025-02-16 12:00] VITALS: BP 152/71; PULSE 78; RESP 18; O2SAT 94
[2025-02-16 12:10] VITALS: BP 126/71; PULSE 68; RESP 17; O2SAT 98
== END 2025-02-16 12:30 | disposition home or self-care (01) ==
PROVIDERS: PCP Nurse Practitioner Family; Visit Provider Internal Medicine Gastroenterology
PROC: 0DJD8ZZ Inspection of Lower Intestinal Tract, Via Natural or Artificial Opening Endoscopic (ICD-10-PCS; CPT 45378; principal; 2025-02-16 10:30)
DX: D12.4 Benign neoplasm of descending colon (principal); D12.2 Benign neoplasm of ascending colon; D12.0 Benign neoplasm of cecum; D12.5 Benign neoplasm of sigmoid colon; K57.90 Diverticulosis of intestine, part unspecified, without perforation or abscess without bleeding; K64.1 Second degree hemorrhoids; Z86.0101 Personal history of adenomatous and serrated colon polyps; Z88.0 Allergy status to penicillin; Z79.82 Long term (current) use of aspirin; Z79.899 Other long term (current) drug therapy
CPT/HCPCS: 45385; 82962; J2003; J2704